=== PATIENT | female | born 1945 | race Caucasian/White ===

== ENCOUNTER 2020-06-23 15:53 | Emergency (ER) | payer MEDICARE, OTHER, SELFPAY ==
[2020-06-23] VITALS (20 sets, daily range): BP systolic 131–214; BP diastolic 65–101; PULSE 75–113; RESP 12–30; TEMP 36.8; O2SAT 98–100
--- NOTE | ~2020-06-23 | CT_ITS ---
EXAMINATION: CT brain wo con EXAM DATE: 06/23/2020 16:05 INDICATION: Left hemiparesis. TECHNIQUE: Spiral CT of the head was performed without contrast. Axial, coronal and sagittal images were reviewed. The dose-length product (DLP) for this examination was 605.33 mGy-cm. The exposure w as tailored according to patient size, and iterative reconstruction (ASIR) was used as additional dos e reduction technique. Comparison is made to prior examination from 02/28/2015 years. FINDINGS: There is a hyperdense mass in the right parietal lobe measuring 2.3 x 2.0 cm, with mild vas ogenic edema in the subjacent white matter. Is potentially could be an extra-axial mass lesion such a s meningioma, however this was not present on a CT scan in 2014 and other histology should be conside red, as well as a cortical based mass. Follow-up nonemergent brain MRI without and with contrast is r ecommended. Mild microangiopathy and cerebral atrophy. No acute intracranial hemorrhage, extra-axial collections or obstructive hydrocephalus. Bilateral cataract surgery. Imaged sinuses, and mastoid air cells are w ell aerated. IMPRESSION: 1. No acute intracranial findings. 2. Right parietal hyperdense 2 cm mass, dural versus cortical based, with mild adjacent white matter vasogenic edema. New compared to 2014. MRI without and with contrast recommended. As per stroke protocol, I called these results, discussed with charge nurse Galilea at 06/23/2020 16:12 CDT. Requested for one of the emergency room doctors to call back when available. Reviewed, dictated and finalized at location A. IMPRESSION: 1. No acute intracranial findings. 2. Right parietal hyperdense 2 cm mass, dural versus cortical based, with mild adjacent white matter vasogenic edema. New compared to 2014. MRI without and with contrast recommended. As per stroke protocol, I called these results, discussed with charge nurse Mike meadows at 06/23/2020 16:12 CDT. Requested for one of the emergency room doctors to call back when available.
--- NOTE | ~2020-06-23 | XR_ITS ---
EXAMINATION: XR chest 1V portable DATE: 06/23/2020 16:42 INDICATION: Seizure. Left-sided weakness. TECHNIQUE: frontal view of the chest was obtained. COMPARISON: Chest radiograph dated 12/26/2018 FINDINGS: The lungs remain clear with no focal airspace opacities, pulmonary edema, pleural effusion or pneumot horax. The cardiomediastinal silhouette is normal. Atherosclerotic calcifications at the bilateral ca rotid bulbs. Moderate cervical and upper thoracic spondylosis. IMPRESSION: 1. No acute cardiopulmonary disease. Reviewed, dictated and finalized at location B.
--- NOTE | 2020-06-23 15:56 | ECG_ITS ---
Measurements Intervals [place] Rate: 73 P: 74 TN: 140 QRS: 3 QRSD: 101 T: 29 QT: 361 QTc: 400 Interpretive Statements SINUS RHYTHM MINIMAL Q WAVES- HIGH LATERAL LEADS BASELINE ARTIFACT- AVR, AVL, AVF BORDERLINE ECG Electronically Signed On 06-23-2020 18:43:18 CDT by Huy Nuñez D.O.
[2020-06-23 16:14] LABS: Glucose Point of Care 98 (65-105)
[2020-06-23 16:21] LABS: Basophils Absolute Auto 0.1 K/mm3 (0.0-0.1); Eosinophils Absolute Auto 0.2 K/mm3 (0-0.3); Eosinophils Percent Auto 2.7 % (0-4.4); Hematocrit 42.7 % (37.0-47.0); Hemoglobin 14.5 g/dL (12.0-15.0); Immature Granulocyte Absolute 0.02 K/mm3 (0.00-0.031); Immature Granulocyte Percent A 0.2 % (0-0.5); Lymphocytes Absolute Auto 2.97 K/mm3 (0.9-3.2); Lymphocytes Percent Auto 36.5 % (18.3-44.2); Mean Corpuscular Hemoglobin 30.3 pg (26-34); Mean Corpuscular Volume 89.3 fl (80-100); Monocytes Absolute Auto 0.6 K/mm3 (0.1-0.6); Monocytes Percent Auto 7.1 % (2.6-8.5); Neutrophils Absolute Auto 4.3 K/mm3 (1.3-6.7); Neutrophils Percent Auto 52.5 % (45.5-73.1); Platelet Count Result 262 k/mm3 (150-375); Red Blood Count 4.78 M/mm3 (4.2-5.4); Red Cell Distribution Width 12.8 % (11.5-14.5); White Blood Count 8.1 K/mm3 (4.5-10.0)
[2020-06-23] MEDS: diazePAM INJ (*CRX) 10 MG/2 ML SYRINGE (16:25)
--- NOTE | 2020-06-23 16:25 | PC.NURSE ---
1625 patient began to have seizure. EDP notified. Per EDP at bedside give 5mg valium via IVP via verbal order readback. Waste documented in pyxsis. Medication thrown away before scanning. Given in emergent situation. NRB placed on patient at 15lpm. Pt. O2 saturations at 100%. Pt. airway suctions from saliva. Seizure pads placed. 162 Seizure activity ceased. Pt. is postictal.
[2020-06-23 16:30] LABS: INR 0.9
[2020-06-23 16:31] LABS: Anion Gap 9 mmol/L (8-16); Blood Urea Nitrogen 23 mg/dL (7-17); Calcium 9.8 mg/dL (8.4-10.2); Carbon Dioxide 28 mmol/L (22-30); Chloride 101 mmol/L (98-107); Estimated Glomerular Filt Rate 55; Glucose 102 mg/dL (65-105); Partial Thromboplastin Time 27.7 SECONDS (22.3-36.8); Sodium 138 mmol/L (137-145)
[2020-06-23] MEDS: levETIRAcetam 1000MG/NACL100ML 1,000 MG/100 ML BAG 400 MG (16:35)
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
[2020-06-23 16:43] LABS: Troponin I < 0.012 ng/mL (0.000-0.034)
[2020-06-23] MEDS: DEXAMETHASONE SOD PHOS INJ 4 MG/ML VIAL 12 MG (17:07)
--- NOTE | 2020-06-23 17:34 | PC.NURSE ---
Herbierto, Pt. spouse
== END 2020-06-23 18:30 | disposition short-term general hospital (02) ==
PROVIDERS: Emergency Provider Emergency Medicine; PCP Family Medicine Adolescent Medicine
DX: I63.9 Cerebral infarction, unspecified (principal); G93.9 Disorder of brain, unspecified; R56.9 Unspecified convulsions; I10 Essential (primary) hypertension; K21.9 Gastro-esophageal reflux disease without esophagitis; Z85.038 Personal history of other malignant neoplasm of large intestine; Z85.528 Personal history of other malignant neoplasm of kidney; Z98.42 Cataract extraction status, left eye; Z98.41 Cataract extraction status, right eye; Z87.891 Personal history of nicotine dependence; R29.703 NIHSS score 3
CPT/HCPCS: 36415; 70450; 71045; 80048; 82948; 84484; 85025; 85610; 85730; 93005; 96374; 96375; 99285; J1100; J1953; J3360

== ENCOUNTER 2020-07-07 11:55 | Outpatient (CLI) | payer MEDICARE, OTHER, SELFPAY ==
[2020-07-07 12:14] LABS: Basophils Absolute Auto 0.1 K/mm3 (0.0-0.1); Basophils Percent Auto 0.9 % (0.2-1.2); Eosinophils Absolute Auto 0.2 K/mm3 (0-0.3); Eosinophils Percent Auto 2.4 % (0-4.4); Hematocrit 34.8 % (37.0-47.0); Hemoglobin 11.5 g/dL (12.0-15.0); Immature Granulocyte Absolute 0.03 K/mm3 (0.00-0.031); Immature Granulocyte Percent A 0.4 % (0-0.5); Lymphocytes Absolute Auto 2.71 K/mm3 (0.9-3.2); Lymphocytes Percent Auto 34.9 % (18.3-44.2); Mean Corpuscular Volume 90.9 fl (80-100); Mean Platelet Volume 9.4 fl (7.4-10.4); Monocytes Absolute Auto 0.5 K/mm3 (0.1-0.6); Monocytes Percent Auto 6.3 % (2.6-8.5); Neutrophils Absolute Auto 4.3 K/mm3 (1.3-6.7); Neutrophils Percent Auto 55.1 % (45.5-73.1); Platelet Count Result 384 k/mm3 (150-375); Red Blood Count 3.83 M/mm3 (4.2-5.4); Red Cell Distribution Width 12.9 % (11.5-14.5); White Blood Count 7.8 K/mm3 (4.5-10.0)
[2020-07-07 12:19] LABS: Atypical Lymphocytes Present; Platelet Estimate Adequate (Adequate)
[2020-07-07 13:11] LABS: Alanine Aminotransferase 12 U/L (4-35); Albumin Level 4.2 g/dL (3.5-5.1); Alkaline Phosphatase 97 U/L (38-126); Anion Gap 8 mmol/L (8-16); Aspartate Amino Transferase 20 U/L (14-36); Bilirubin,Total 0.3 mg/dL (0.2-1.3); Blood Urea Nitrogen 17 mg/dL (7-17); Calcium 9.5 mg/dL (8.4-10.2); Carbon Dioxide 29 mmol/L (22-30); Chloride 101 mmol/L (98-107); Estimated Glomerular Filt Rate 55; Glucose 91 mg/dL (65-105); Potassium 4.3 mmol/L (3.4-5.0); Sodium 138 mmol/L (137-145)
[2020-07-07 13:38] LABS: Carcinoembryonic Antigen 2.9 ng/mL (0.0-3.0)
== END 2020-07-07 11:56 | disposition home or self-care (01) ==
PROVIDERS: PCP Family Medicine Adolescent Medicine; Visit Provider Internal Medicine Hematology & Oncology
DX: C18.2 Malignant neoplasm of ascending colon (principal)
CPT/HCPCS: 36415; 80053; 82378; 85025

== ENCOUNTER 2020-07-22 08:51 | Outpatient (CLI) | payer MEDICARE, OTHER, SELFPAY ==
--- NOTE | ~2020-07-22 | PE_ITS ---
EXAMINATION: PET skull to mid thigh DATE: 07/22/2020 12:01 INDICATION: Renal cell carcinoma TECHNIQUE: Blood glucose level was 101 mg/dL. 7.401 mCi of 18-fluorodeoxyglucose (18-FDG) was adminis tered i.v. Low dose computed tomography (CT) images were acquired from the base of the brain to the p roximal thighs for attenuation correction and anatomic localization. Positron emission tomography (PE T) images were acquired in the same distribution beginning 59 minutes after injection. Images includi ng fused PET/CT images were reconstructed in axial, coronal, and sagittal planes. Automated exposure control technique was employed. The dose-length product was 549.26mGy-cm. COMPARISON: CT abdomen and pelvis dated 07/24/[address] dated 06/23/2020 FINDINGS: Head/neck: There is a photopenic defect in the medial right parietal lobe underlying a craniotomy defect likely representing interval resection of a prior enhancing brain lesion, metastatic renal cell carcinoma pe r patient report. There is symmetric increased activity in the oral cavity, palatine tonsils, parotid glands, submandibular glands, laryngeal muscles and ocular muscles without CT correlate, likely phy siologic. No pathologically enlarged cervical lymphadenopathy or suspicious foci of increased FDG upt vikki in the visualized head or neck. Chest: Mild to moderate emphysema. Minimal biapical pleural-parenchymal scarring. Bilateral Bochdalek hernia s at the lung bases. No suspicious pulmonary nodules, pneumonia or other pulmonary infiltrates or ple ural effusion. Heart size is normal. Atherosclerotic coronary artery calcification. No pericardial ef fusion. Relatively symmetric mild subareolar uptake at the bilateral breasts. Small sliding-type hiat al hernia. No pathologically enlarged or FDG avid thoracic lymphadenopathy. Abdomen/pelvis/proximal thighs: Attenuation material along a defect at the inferior pole of the right kidney consistent with prior pa rtial right nephrectomy. Physiologic renal accumulation and excretion of FDG activity in the kidneys, bladder and along portions of ureters. Normal degree and heterogenous pattern of increased uptake th roughout the liver without radiologic correlate or dominant FDG avid lesion. The gallbladder, pancrea s, spleen and bilateral adrenal glands are normal. Postoperative change of prior right hemicolectomy with ileocolic anastomosis in the right upper quadrant. Mild uptake scattered throughout the bowels w ithout radiologic correlate, also likely physiologic. Uterus and bilateral adnexa are unremarkable. T here is calcified atherosclerosis of the aorta and many of the other arteries. No other abnormal foc i of increased FDG uptake or pathologically enlarged lymphadenopathy in the abdomen, pelvis or proxim al thighs. Musculoskeletal: Mild lumbar levoscoliosis with moderate spondylosis. No suspicious lytic, blastic or FDG avid bone le sions. IMPRESSION: 1. No evident metastatic disease. 2. Postoperative change of prior right parietal craniectomy and parietal lobe excisional biopsy, part ial right nephrectomy and right hemicolectomy. 3. Mild to moderate emphysema. Reviewed, dictated and finalized at location A. AL PROJECT MANAGER IMPRESSION: 1. No evident metastatic disease. 2. Postoperative change of prior right parietal craniectomy and parietal lobe e xcisional biopsy, partial right nephrectomy and right hemicolectomy. 3. Mild to moderate emphysema.
[2020-07-22 09:48] LABS: Glucose Point of Care 101 (65-105)
== END 2020-07-22 08:52 | disposition home or self-care (01) ==
LOC: ANHIMG 08:53
PROVIDERS: PCP Family Medicine Adolescent Medicine; Visit Provider Internal Medicine Hematology & Oncology
DX: Z03.89 Encounter for observation for other suspected diseases and conditions ruled out (principal); C64.1 Malignant neoplasm of right kidney, except renal pelvis; J43.9 Emphysema, unspecified; Z90.5 Acquired absence of kidney
CPT/HCPCS: 78815; A9552

== ENCOUNTER 2020-07-26 11:17 | Outpatient (CLI) | payer MEDICARE, OTHER, SELFPAY ==
[2020-07-26 11:31] LABS: Basophils Absolute Auto 0.1 K/mm3 (0.0-0.1); Basophils Percent Auto 1.1 % (0.2-1.2); Eosinophils Absolute Auto 0.3 K/mm3 (0-0.3); Eosinophils Percent Auto 5.2 % (0-4.4); Hematocrit 38.4 % (37.0-47.0); Hemoglobin 12.9 g/dL (12.0-15.0); Immature Granulocyte Absolute 0.02 K/mm3 (0.00-0.031); Immature Granulocyte Percent A 0.3 % (0-0.5); Lymphocytes Absolute Auto 1.97 K/mm3 (0.9-3.2); Lymphocytes Percent Auto 31.9 % (18.3-44.2); Mean Corpuscular HGB Conc 33.6 g/dl (32-36); Mean Corpuscular Hemoglobin 30.4 pg (26-34); Mean Corpuscular Volume 90.4 fl (80-100); Mean Platelet Volume 9.9 fl (7.4-10.4); Monocytes Absolute Auto 0.6 K/mm3 (0.1-0.6); Monocytes Percent Auto 9.9 % (2.6-8.5); Neutrophils Absolute Auto 3.2 K/mm3 (1.3-6.7); Neutrophils Percent Auto 51.6 % (45.5-73.1); Platelet Count Result 232 k/mm3 (150-375); Red Blood Count 4.25 M/mm3 (4.2-5.4); White Blood Count 6.2 K/mm3 (4.5-10.0)
[2020-07-26 12:08] LABS: Alanine Aminotransferase 11 U/L (4-35); Albumin Level 4.5 g/dL (3.5-5.1); Alkaline Phosphatase 102 U/L (38-126); Anion Gap 9 mmol/L (8-16); Aspartate Amino Transferase 20 U/L (14-36); Bilirubin,Total 0.4 mg/dL (0.2-1.3); Blood Urea Nitrogen 17 mg/dL (7-17); Calcium 9.9 mg/dL (8.4-10.2); Carbon Dioxide 29 mmol/L (22-30); Chloride 102 mmol/L (98-107); Estimated Glomerular Filt Rate 55; Glucose 108 mg/dL (65-105); Potassium 4.7 mmol/L (3.4-5.0); Sodium 140 mmol/L (137-145)
[2020-07-26 12:37] LABS: Carcinoembryonic Antigen 2.6 ng/mL (0.0-3.0)
== END 2020-07-26 11:18 | disposition home or self-care (01) ==
LOC: ANHLAB 11:19
PROVIDERS: PCP Family Medicine Adolescent Medicine; Visit Provider Internal Medicine Hematology & Oncology
DX: C18.2 Malignant neoplasm of ascending colon (principal)
CPT/HCPCS: 36415; 80053; 82378; 85025

== ENCOUNTER → 2020-10-20 08:44 | Outpatient (CLI) | payer MEDICARE, OTHER, SELFPAY ==
--- NOTE | ~2020-10-20 | CT_ITS ---
EXAMINATION: CT chest abdomen pelvis w con DATE: 10/20/2020 09:27 INDICATION: Metastatic renal cell carcinoma TECHNIQUE: Transaxial computed tomographic images of the chest, abdomen, and pelvis were obtained aft er the administration of 100 cc of Omnipaque 350 intravenous contrast. The dose-length product (DLP) was 1082.32 mGy-cm. Automated exposure control and iterative reconstruction technique were employed. COMPARISON: 07/22/2020, 07/24/2019 FINDINGS: CHEST CT: There is mild dependent atelectasis. No suspicious pulmonary nodule is identified. There is mild emph ysema. No pleural effusion or pneumothorax is present. No pathologically enlarged thoracic lymph node s are identified. The heart size is normal. There is aberrant origin of the right subclavian artery w hich passes behind the esophagus. Small bilateral fat-containing posterior diaphragmatic hernias are noted. ABDOMEN/PELVIS CT: There are stable cysts of the liver measuring up to 7 mm in the right hepatic lobe. The spleen, pancr eas, gallbladder, and adrenal glands are normal. The left kidney is unremarkable. There are changes o f partial right nephrectomy without evidence of residual or recurrent mass. There are changes of lymp h node dissection in the right retroperitoneum. No pathologically enlarged abdominal or pelvic lymph nodes are identified. There is no free intraperitoneal gas or evidence of bowel obstruction. There is calcified atherosclerosis of the aorta and many of the other arteries. There are surgical changes of right hemicolectomy. There is mild lumbar spondylosis. IMPRESSION: 1. Surgical changes of partial right nephrectomy without evidence of residual or recurrent disease. N o metastatic disease identified. 2. Mild emphysema. Reviewed, dictated and finalized at location A. CTOR OF ANNUAL GIVING IMPRESSION: 1. Surgical changes of partial right nephrectomy without evidence of residual o r recurrent disease. No metastatic disease identified. 2. Mild emphysema.
[2020-10-20 09:08] LABS: Estimated Glomerular Filt Rate 49
== END ==
PROVIDERS: PCP Nurse Practitioner Family; Visit Provider Internal Medicine Hematology & Oncology
DX: C64.1 Malignant neoplasm of right kidney, except renal pelvis (principal); Z98.890 Other specified postprocedural states; J43.9 Emphysema, unspecified
CPT/HCPCS: 71260; 74177; Q9967

== ENCOUNTER 2020-10-28 09:49 | Outpatient (CLI) | payer MEDICARE, OTHER, SELFPAY ==
[2020-10-28 10:05] LABS: Basophils Absolute Auto 0.1 K/mm3 (0.0-0.1); Eosinophils Absolute Auto 0.2 K/mm3 (0-0.3); Eosinophils Percent Auto 2.9 % (0-4.4); Hematocrit 41.7 % (37.0-47.0); Hemoglobin 13.6 g/dL (12.0-15.0); Immature Granulocyte Absolute 0.01 K/mm3 (0.00-0.031); Immature Granulocyte Percent A 0.1 % (0-0.5); Lymphocytes Absolute Auto 2.26 K/mm3 (0.9-3.2); Lymphocytes Percent Auto 31.4 % (18.3-44.2); Mean Corpuscular HGB Conc 32.6 g/dl (32-36); Mean Corpuscular Hemoglobin 29.6 pg (26-34); Mean Corpuscular Volume 90.8 fl (80-100); Mean Platelet Volume 9.7 fl (7.4-10.4); Monocytes Absolute Auto 0.7 K/mm3 (0.1-0.6); Neutrophils Percent Auto 55.6 % (45.5-73.1); Platelet Count Result 273 k/mm3 (150-375); Red Blood Count 4.59 M/mm3 (4.2-5.4); Red Cell Distribution Width 12.5 % (11.5-14.5); White Blood Count 7.2 K/mm3 (4.5-10.0)
[2020-10-28 10:11] LABS: Blood Urea Nitrogen 24 mg/dL (8-26); Carbon Dioxide 27 mmol/L (22-30); Chloride 105 mmol/L (98-109); Estimated Glomerular Filt Rate 49; Glucose 89 mg/dL (70-105); Potassium 5.5 mmol/L (3.5-4.9); Sodium 139 mmol/L (138-146)
[2020-10-28 13:14] LABS: Alanine Aminotransferase 12 U/L (4-35); Albumin Level 4.4 g/dL (3.5-5.1); Alkaline Phosphatase 106 U/L (38-126); Anion Gap 9 mmol/L (8-16); Aspartate Amino Transferase 22 U/L (14-36); Bilirubin,Total 0.5 mg/dL (0.2-1.3); Blood Urea Nitrogen 24 mg/dL (7-17); Calcium 9.8 mg/dL (8.4-10.2); Carbon Dioxide 28 mmol/L (22-30); Chloride 103 mmol/L (98-107); Estimated Glomerular Filt Rate > 60; Glucose 93 mg/dL (65-105); Potassium 4.8 mmol/L (3.4-5.0); Sodium 140 mmol/L (137-145)
[2020-10-28 13:45] LABS: Carcinoembryonic Antigen 2.6 ng/mL (0.0-3.0)
== END 2020-10-28 09:50 | disposition home or self-care (01) ==
LOC: ANHLAB 09:51
PROVIDERS: PCP Nurse Practitioner Family; Visit Provider Internal Medicine Hematology & Oncology
DX: C18.2 Malignant neoplasm of ascending colon (principal)
CPT/HCPCS: 36415; 80048; 80053; 82378; 85025

== ENCOUNTER → 2021-04-18 10:28 | Outpatient (CLI) | payer MEDICARE, OTHER, SELFPAY ==
--- NOTE | ~2021-04-18 | CT_ITS ---
EXAMINATION: CT chest abdomen pelvis wo con DATE: 04/18/2021 10:48 INDICATION: Renal cell carcinoma and colon cancer restaging; status post right partial nephrectomy TECHNIQUE: Computed tomography (CT) of the chest, abdomen, and pelvis was performed without intraveno us contrast. Automated exposure control and iterative reconstruction technique were employed. Exam do se: 1009.07 mGy-cm total exam DLP. COMPARISON: October 20, 2020 CT chest abdomen pelvis FINDINGS: CHEST CT: Bilateral fat-containing foramen of Bochdalek hernias. Mild emphysematous changes are noted. No pulmonary infiltrate or consolidation or pulmonary mass lesi on is noted. Aberrant right subclavian artery. Normal heart size. No pericardial or pleural effusion. There is a small sliding hiatal hernia. No hilar or mediastinal mass lesion or lymphadenopathy. No thoracic aortic aneurysm. ABDOMEN/PELVIS CT: No hepatic, splenic, pancreatic, adrenal or renal space-occupying mass lesion is detected. There is p ostoperative change from partial nephrectomy lower pole of the right kidney. No bile duct dilatation or pancreatic duct dilatation. The gallbladder is present. No gallbladder wal l thickening or pericholecystic fluid or fat stranding. No urinary tract calculus or hydroureteronephrosis. Normal caliber of the abdominal aorta. There is atherosclerotic calcification of the aorta and at the origins of the celiac and superior mesenteric and renal arteries. No abdominal aortic aneurysm. Ther e are iliac and femoral artery calcifications. No intraperitoneal or retroperitoneal or pelvic mass lesion or adenopathy or ascites. There is diverticulosis of left colon; no CT evidence of diverticulitis. Partial right colectomy for history of colon cancer. No bowel obstruction, bowel wall thickening, pneumatosis or intraperitoneal free air is detected. The uterus and adnexal areas are unremarkable. Urinary bladder appears normal. No suspicious osteolytic or osteoblastic lesions are noted. There is degenerative change at the apophyseal joints with associated minimal grade 1 anterolisthesis at L4-5. IMPRESSION: Status post right partial nephrectomy for renal cell cancer; no recurrence or metastasis is noted Status post right partial colectomy for colon cancer; no bowel obstruction or metastasis is evident Reviewed, dictated and finalized at Location A. Reviewed, dictated and finalized at location A. IMPRESSION: Status post right partial nephrectomy for renal cell cancer; no re currence or metastasis is noted Status post right partial colectomy for colon cancer; no bowel obstruction or m etastasis is evident
== END ==
PROVIDERS: PCP Nurse Practitioner Family; Visit Provider Internal Medicine Hematology & Oncology
DX: C64.1 Malignant neoplasm of right kidney, except renal pelvis (principal); Z90.5 Acquired absence of kidney; Z90.49 Acquired absence of other specified parts of digestive tract
CPT/HCPCS: 71250; 74176

== ENCOUNTER 2021-07-28 14:36 | Emergency (ER) | payer MEDICARE, OTHER, SELFPAY ==
--- NOTE | ~2021-07-28 | CT_ITS ---
EXAMINATION: CT brain wo con DATE: 07/28/2021 18:00 INDICATION: Posterior head injury TECHNIQUE: Computed tomography (CT) of the head was performed without intravenous contrast. Sagittal and coronal reconstructions were performed. The mA was adjusted according to patient size. Iterative reconstruction technique was employed. The dose-length product was 605.33 mGy-cm. COMPARISON: head CT dated 06/23/2020 FINDINGS: Right parietal craniotomy with plate and screw fixations. Interval resection of a prior hyperdense ex tra-axial mass along the right side of the parietal falx reportedly metastatic renal cell carcinoma p er prior patient report but would correlate with surgical/pathologic history. Small region of residua l encephalomalacia in the right parietal lobe adjacent to the site of the resected mass. No acute fra cture. No acute intracranial hemorrhage, acute infarction or abnormal extra axial fluid collection. V entricles are normal and symmetric. No mass/mass effect. Changes of bilateral intraocular lens replac ement. The orbits, paranasal sinuses and mastoid air cells are normal. IMPRESSION: 1. No acute intracranial process. 2. Small region of encephalomalacia in the right parietal lobe at the site of a resected prior mass r eportedly metastatic renal cell carcinoma. Reviewed, dictated and finalized at location A. PAINTER IMPRESSION: 1. No acute intracranial process. 2. Small region of encephalomalacia in the right parietal lobe at the site of a resected prior mass reportedly metastatic renal cell carcinoma.
--- NOTE | ~2021-07-28 | CT_ITS ---
EXAMINATION: CT cervical spine wo con DATE: 07/28/2021 18:00 INDICATION: Posterior head injury. TECHNIQUE: Computed tomography (CT) of the cervical spine was performed without intravenous contrast. Automated exposure control and iterative reconstruction technique were employed. The dose-length pro duct was 306.51 mGy-cm. COMPARISON: None FINDINGS: Straightening of the normal cervical lordosis. 2 mm anterolisthesis C3 on C4 and 2 mm anterolisthesis C7 on T1. Severe atlantoaxial osteoarthritis. Vertebral body heights are normal. No fracture. Modera te to severe disc height loss at C4-C5 and C6-C7, moderate disc height loss at C5-C6 and mild disc he ight loss at C2-C3, C3-C4 and C7-T1. Moderate to severe uncovertebral osteoarthritis and posterior di sc osteophyte complexes at C4-C5 through C6-C7 contributing to mild central canal and bilateral neura l foramina stenosis at each of these levels. Multilevel bilateral cervical facet osteoarthritis, walter re on the left at C6-C7 and C7-T1 and on the right at C3-C4 and C7-T1. There is fusion across the duncan ateral C2-C3 facet joints. Atherosclerotic calcifications at the bilateral carotid bulbs which appear s potentially hemodynamically significant. Cervical soft tissues are otherwise unremarkable. Mild emp hysema the apices of the lungs. IMPRESSION: 1. Moderate to severe cervical spondylosis. No acute osseous abnormality. Reviewed, dictated and finalized at location A. OGLYCERIN SEPARATOR OPERATOR
[2021-07-28 14:40] VITALS: BP 179/95; PULSE 78; RESP 16; TEMP 36.7; O2SAT 99
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
[2021-07-28 19:14] VITALS: BP 146/90; PULSE 66; RESP 18; O2SAT 100
== END 2021-07-28 19:19 | disposition home or self-care (01) ==
PROVIDERS: Emergency Provider Emergency Medicine; PCP Nurse Practitioner Family
DX: S09.90XA Unspecified injury of head, initial encounter (principal); S16.1XXA Strain of muscle, fascia and tendon at neck level, initial encounter; I10 Essential (primary) hypertension; K21.9 Gastro-esophageal reflux disease without esophagitis; Z85.038 Personal history of other malignant neoplasm of large intestine; Z85.528 Personal history of other malignant neoplasm of kidney; Z98.42 Cataract extraction status, left eye; Z98.41 Cataract extraction status, right eye; Z90.5 Acquired absence of kidney; Z90.49 Acquired absence of other specified parts of digestive tract; Z87.891 Personal history of nicotine dependence; W22.8XXA Striking against or struck by other objects, initial encounter
CPT/HCPCS: 70450; 72125; 99284

== ENCOUNTER 2021-08-02 10:19 | Outpatient (CLI) | payer MEDICARE, OTHER, SELFPAY ==
--- NOTE | ~2021-08-02 | CT_ITS ---
EXAMINATION: CT chest abdomen pelvis w con EXAM DATE: 08/02/2021 10:55 INDICATION: Malignant neoplasm of right kidney, except renal pelvis. Colon cancer. Brain metastases. TECHNIQUE: Spiral CT of the chest, abdomen and pelvis was performed following intravenous injection o f 100 mL Omnipaque 350. Axial, coronal and sagittal images chest, abdomen and pelvis were reviewed. Coronal maximum intensity pixel images of chest reviewed. The dose-length product (DLP) for this ex amination was 1128.56 mGy-cm. The exposure was tailored according to patient size (auto mA exposure control), and iterative reconstruction (ASIR) was used as additional dose reduction technique. Compar bowen is made to prior examination from 04/18/2021. FINDINGS: CHEST: There is mild emphysema and hyperinflation. Right basilar subsegmental atelectasis. There is an aberrant right subclavian artery, a normal congenital variant. No central pulmonary emboli. There are no pleural or pericardial effusions. Tracheobronchial tree is patent. There is no mediastina l, hilar or axillary lymphadenopathy. There is no pneumothorax. Heart normal in size. There is moderate coronary arterial calcification, arterial sclerosis. ABDOMEN PELVIS: The liver, spleen, adrenal glands and pancreas are unremarkable. Gallbladder is unr emarkable. No biliary obstruction. Surgical changes from partial nephrectomy right kidney lower josh e, stable appearance. No adjacent lymphadenopathy. The uterus is unremarkable. The bladder is unre markable. There is no retroperitoneal or pelvic lymphadenopathy. There is moderate scattered arter iosclerotic disease. Cecal resection. There is mild scattered colonic diverticulosis. There is no adjacent inflammatory c hange to suggest diverticulitis. The stomach and small bowel are unremarkable. There is expected shirin unt of colonic stool. No free intraperitoneal gas. There are no osteoblastic or osteolytic lesion s identified. There is moderate lumbar levoscoliosis. IMPRESSION: 1. Stable surgical changes to cecal resection, partial right nephrectomy. 2. Right lower lobe subsegmental atelectasis. 3. Mild emphysema. 4. Mild colonic diverticulosis. Reviewed, dictated and finalized at location A. [facility] [employer]
[2021-08-02 10:39] LABS: Estimated Glomerular Filt Rate 54
== END 2021-08-02 10:20 ==
LOC: MICIMG 10:20
PROVIDERS: PCP Nurse Practitioner Family; Visit Provider Internal Medicine Hematology & Oncology
DX: C64.1 Malignant neoplasm of right kidney, except renal pelvis (principal); K57.30 Diverticulosis of large intestine without perforation or abscess without bleeding; J98.11 Atelectasis; J43.9 Emphysema, unspecified
CPT/HCPCS: 71260; 74177; Q9967

== ENCOUNTER → 2022-11-29 08:50 | Outpatient (CLI) | payer MEDICARE, OTHER, SELFPAY ==
--- NOTE | ~2022-11-29 | MR_ITS ---
MRI of the right knee Clinical history: Pain Technique: Coronal proton density and proton density-weighted images, sagittal proton-density and T2 fat-sat images, and axial proton-density fat-saturated images were acquired. Findings: Anterior and posterior cruciate ligaments are intact. Medial collateral ligament and the la teral collateral ligament complex are intact. Popliteus tendon is intact. There is intrasubstance degenerative signal in the medial and lateral menisci, without definite tear. There is high-grade chondromalacia extensively involving the medial femoral condyle and anterior port ion of the medial tibial plateau. Articular cartilage in the lateral compartment is well preserved. T here is patchy moderate to high-grade chondromalacia patella. Femoral trochlear cartilage is well pre served. Small osteophytes are present at the medial and lateral joint lines. Extensor mechanism is intact. There is minimal joint effusion. No significant Erickson's cyst. Impression: Intrasubstance degenerative signal of the medial and lateral menisci without definite tear. Moderate degenerative change of the medial compartment. Mild degenerative changes of the lateral and patellofemoral compartments. Reviewed, dictated and finalized at location . Impression: Intrasubstance degenerative signal of the medial and lateral menisci without de finite tear. Moderate degenerative change of the medial compartment. Mild degenerative hernandez es of the lateral and patellofemoral compartments.
== END ==
PROVIDERS: PCP Nurse Practitioner Family; Visit Provider Physician Assistant Surgical
DX: S89.91XA Unspecified injury of right lower leg, initial encounter (principal); X58.XXXA Exposure to other specified factors, initial encounter; M17.11 Unilateral primary osteoarthritis, right knee
CPT/HCPCS: 73721

== ENCOUNTER 2023-08-27 10:09 | Outpatient (CLI) | payer MEDICARE, OTHER, SELFPAY ==
[2023-08-27 10:31] LABS: Eosinophils Absolute Auto 0.2 K/mm3 (0-0.3); Eosinophils Percent Auto 3.9 % (0-4.4); Hematocrit 41.9 % (37.0-47.0); Lymphocytes Absolute Auto 1.86 K/mm3 (0.9-3.2); Lymphocytes Percent Auto 45.6 % (18.3-44.2); Mean Corpuscular HGB Conc 33.4 g/dl (32-36); Mean Corpuscular Hemoglobin 30.3 pg (26-34); Mean Corpuscular Volume 90.7 fl (80-100); Mean Platelet Volume 9.5 fl (7.4-10.4); Monocytes Absolute Auto 0.4 K/mm3 (0.1-0.6); Monocytes Percent Auto 9.1 % (2.6-8.5); Neutrophils Absolute Auto 1.7 K/mm3 (1.3-6.7); Neutrophils Percent Auto 40.4 % (45.5-73.1); Platelet Count Result 256 k/mm3 (150-375); Red Blood Count 4.62 M/mm3 (4.2-5.4); Red Cell Distribution Width 12.5 % (11.5-14.5); White Blood Count 4.1 K/mm3 (4.5-10.0)
[2023-08-27 10:37] LABS: Blood Urea Nitrogen 20 mg/dL (8-26); Carbon Dioxide 27 mmol/L (22-30); Chloride 100 mmol/L (98-109); Estimated Glomerular Filt Rate 54; Glucose 102 mg/dL (70-105); Ionized Calcium (POC) 1.16 mmol/L (1.11-1.31); Potassium 4.3 mmol/L (3.5-4.9); Sodium 139 mmol/L (138-146)
[2023-08-27 11:55] LABS: Alanine Aminotransferase 14 U/L (6-35); Albumin Level 4.5 g/dL (3.5-5.1); Alkaline Phosphatase 105 U/L (38-126); Anion Gap 10 mmol/L (8-16); Aspartate Amino Transferase 24 U/L (14-36); Bilirubin,Total 0.6 mg/dL (0.2-1.3); Blood Urea Nitrogen 20 mg/dL (7-17); Calcium 9.7 mg/dL (8.4-10.2); Carbon Dioxide 27 mmol/L (22-30); Chloride 102 mmol/L (98-107); Estimated Glomerular Filt Rate > 60; Glucose 104 mg/dL (65-110); Potassium 4.4 mmol/L (3.4-5.0); Sodium 139 mmol/L (137-145)
[2023-08-27 12:22] LABS: Carcinoembryonic Antigen 2.7 ng/mL (0.0-3.0)
== END 2023-08-27 10:10 | disposition home or self-care (01) ==
LOC: ANHLAB 10:11
PROVIDERS: PCP Nurse Practitioner Family; Visit Provider Internal Medicine Hematology & Oncology
DX: C18.2 Malignant neoplasm of ascending colon (principal)
CPT/HCPCS: 36415; 80047; 80053; 82378; 85025

== ENCOUNTER 2023-09-05 08:57 | Outpatient (CLI) | payer MEDICARE, OTHER, SELFPAY ==
--- NOTE | ~2023-09-05 | CT_ITS ---
EXAMINATION: CT chest abdomen pelvis w con DATE: 09/05/2023 09:29 INDICATION: Malignant neoplasm of colon. Renal cell carcinoma. TECHNIQUE: Computed tomography (CT) of the chest, abdomen, and pelvis was performed with 100 mL Omnip aque 350 intravenous contrast. Automated exposure control and iterative reconstruction technique were employed. The dose-length product was 1001.08 mGy-cm. COMPARISON: CT chest, abdomen, and pelvis 08/02/2021 FINDINGS: CHEST CT: There is mild emphysema. There is mild atelectasis bilaterally. No pleural effusion. There is an aber rant right subclavian artery. The heart size is normal. There are coronary artery calcifications. No pericardial effusion. There is a small sliding hiatal hernia. There is severe thoracic spondylosis. ABDOMEN/PELVIS CT: There are cysts in the liver measuring up to 7 mm. The gallbladder, spleen, pancreas, adrenal glands, and left kidney are normal. There are changes of partial right nephrectomy. There is calcified ather osclerosis of the aorta and many of the other arteries. There is diverticulosis of the colon without evidence of diverticulitis. There are changes of right hemicolectomy. There are no pathologically enl arged lymph nodes. There is no free intraperitoneal fluid. There is lumbar levoscoliosis and severe s pondylosis. IMPRESSION: 1. No evidence of metastatic disease. 2. Mild emphysema. 3. Small sliding hiatal hernia. Reviewed, dictated and finalized at location E. ER [facility]
== END 2023-09-05 08:58 ==
LOC: MICIMG 08:58
PROVIDERS: PCP Internal Medicine Hematology & Oncology; Visit Provider Internal Medicine Hematology & Oncology
DX: C64.9 Malignant neoplasm of unspecified kidney, except renal pelvis (principal); C18.9 Malignant neoplasm of colon, unspecified; J43.9 Emphysema, unspecified; K44.9 Diaphragmatic hernia without obstruction or gangrene
CPT/HCPCS: 71260; 74177; Q9967

== ENCOUNTER 2024-01-23 18:12 | Emergency (ER) | payer MEDICARE, OTHER, SELFPAY ==
--- NOTE | ~2024-01-23 | XR_ITS ---
EXAMINATION: XR wrist RT min 3V DATE: 01/23/2024 18:39 INDICATION: Right wrist injury. TECHNIQUE: 4 views of right wrist were obtained. COMPARISON: None. FINDINGS: Alignment is normal. No fracture. There is mild osteoarthritis of triscaphe joint and first carpometacarpal joint. IMPRESSION: 1. Mild polyarticular osteoarthritis. Reviewed, dictated and finalized at location E.
[2024-01-23 18:39] VITALS: BP 168/75; PULSE 69; RESP 14; TEMP 36.8; O2SAT 100
--- NOTE | 2024-01-23 18:56 | ED.EXTPRO ---
HPI - Extremity Problem General Chief complaint: Extremity Injury, Upper Stated complaint: right arm injury Time Seen by Provider: 01/23/24 18:46 Source: patient and RN notes reviewed Mode of arrival: ambulatory Limitations: no limitations History of Present Illness HPI Narrative: Patient presents today complaining of an injury to her right wrist. Approximately 8 hours prior to arrival, patient struck her wrist on her car door. States it swelled up immediately. She has applied ice throughout the day in the swelling has improved, but she did develop some significant bruising. Reports some tingling to her fingers as well. She has tried no [id number] medication for symptoms prior to arrival. Related Data Home Medications Medication Instructions Recorded Confirmed mecobalamin (vitamin B12) 1,000 1,000 mcg PO DAILY 01/12/20 01/23/24 mcg chewable tablet vit C 250 mg-vit E 90 mg-zinc 40 1 tablet PO BID 01/12/20 01/23/24 mg-copper 1 [id number] capsule (PreserVision AREDS-2) amlodipine 5 mg tablet 5 mg PO DAILY 12/09/21 01/23/24 cyanocobalamin (vitamin B-12) 5,000 mcg PO DAILY 12/09/21 01/23/24 5,000 mcg capsule levetiracetam 500 mg tablet 500 mg PO Q12H 12/09/21 01/23/24 omeprazole 20 mg capsule,delayed 20 mg PO DAILY 12/09/21 01/23/24 release phenazopyridine 95 mg tablet (Azo 95 mg PO TID PRN Incontinence 01/02/22 01/23/24 Urinary Pain Relief) Allergies Allergy/AdvReac Type Severity Reaction Status Date / Time ciprofloxacin Allergy Unknown unknown Verified 01/23/24 18:18 clindamycin Allergy Unknown unknown Verified 01/23/24 18:18 latex Allergy Unknown sentive Verified 01/23/24 18:18 not really alergic mold Allergy Unknown trouble Verified 01/23/24 18:18 breathing nitrofurantoin Allergy Unknown shuts down Verified 01/23/24 18:18 systems pollen extracts Allergy Unknown respirator Verified 01/23/24 18:18 y Sulfa (Sulfonamide Allergy Unknown unknown Verified 01/23/24 18:18 Antibiotics) clarithromycin AdvReac Mild RASH AND Verified 01/23/24 18:18 BURNING CEFTRIAXONE SODIUM AdvReac Mild RASH Uncoded 01/23/24 18:18 Review of Systems Review of Systems: CONSTITUTIONAL: Denies body aches, fever, chills, or sweats. EYES: Denies visual changes, redness, or discharge. ENT: Denies rhinorrhea, congestion, sore throat, or otalgia. CARDIOVASCULAR: Denies chest pain, palpitations, or edema. RESPIRATORY: Denies cough or dyspnea. GASTROINTESTINAL: Denies abdominal pain, nausea, vomiting, or diarrhea. GENITOURINARY: Denies dysuria or hematuria. SKIN: Denies rash, itching, or wounds. MUSCULOSKELETAL: + right wrist injury NEUROLOGIC: Denies headache, numbness, tingling, or weakness. PSYCH: Denies depression or anxiety. [facility] Past Medical History Medical History (Updated 01/23/24 @ 19:00 by Vianney Granda, REJI, BC) Colon cancer GERD (gastroesophageal reflux disease) Heart murmur History of kidney cancer HTN (hypertension) Incisional hernia Surgical History Surgical History Cataracts, bilateral removed H/O hernia repair History of ankle surgery with tendon repair 2012 History of colon surgery had colon cancer removed 2017 History of kidney surgery bottom half kidney removed 2010 History of knee surgery 2019 Family History Family History Mother Diabetes mellitus Hypertension Cerebrovascular accident Grandparent Carcinoma of colon Father Cancer Other Family history of allergic disorder Family history of arthritis Family history of malignant neoplasm of breast Family history of malignant neoplasm of kidney Social History Social History Smoking status: Never smoker Smoking end date: 09/10/10 Alcohol intake: current Alcohol use details: occasiona
== END 2024-01-23 19:05 | disposition home or self-care (01) ==
PROVIDERS: Emergency Provider Nurse Practitioner
DX: S50.11XA Contusion of right forearm, initial encounter (principal); W22.8XXA Striking against or struck by other objects, initial encounter; F12.90 Cannabis use, unspecified, uncomplicated; K21.9 Gastro-esophageal reflux disease without esophagitis; R01.1 Cardiac murmur, unspecified; I10 Essential (primary) hypertension; Z85.038 Personal history of other malignant neoplasm of large intestine; Z85.528 Personal history of other malignant neoplasm of kidney; Z98.42 Cataract extraction status, left eye; Z98.41 Cataract extraction status, right eye; Z90.5 Acquired absence of kidney; Z87.891 Personal history of nicotine dependence
CPT/HCPCS: 73110; 99213; G0463

== ENCOUNTER 2024-06-06 14:35 | Emergency (ER) | payer MEDICARE, OTHER, SELFPAY ==
--- NOTE | ~2024-06-06 | CT_ITS ---
CTA brain carotid Ordering provider: Demarcus Lemons MD History: . left side weakness . Comparison: None. Technique: CT angiogram head and neck was performed following timed intravenous injection of contrast . Thin slice axial images and reformatted coronal images were obtained. Three dimensional reformatted images of the brain were also obtained using a [employer] workstation. Radiation reduction technique uti lized. 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 HEAD: --ANTERIOR AND MIDDLE CEREBRAL ARTERIES AND BRANCHES: Normal caliber and contour. --INTERNAL CAROTID ARTERIES: Mild atheromatous disease but no significant stenosis. No occlusion. --BASILAR ARTERY AND BRANCHES: Normal caliber and contour. No atheromatous disease. --POSTERIOR CEREBRAL ARTERIES: Normal caliber and contour --POSTERIOR COMMUNICATING ARTERIES: The right is demonstrated and continues as posterior cerebral art rodri. The left is Not visualized which is probably related to congenital absence or small size. --ANEURYSM: None visualized. --BRAIN: No evidence of hemorrhage or infarct. Encephalomalacia seen in the right parietal area most likely postoperative.--BONES AND SUPERFICIAL SOFT TISSUES: Postoperative changes in the right occipit al area. --PARANASAL SINUSES AND MASTOIDS: Normal. NECK: --RIGHT CERVICAL CAROTID SYSTEM: Mild atheromatous disease of the carotid bulb and proximal internal carotid artery without significant stenosis. Percent stenosis per NASCET criteria is 40%. No carotid dissection. Otherwise, no significant atheromatous disease or stenosis of the cervical carotid syste m. --LEFT CERVICAL CAROTID SYSTEM: Mild atheromatous disease of the carotid bulb and proximal internal c arotid artery without significant stenosis. Percent stenosis per NASCET criteria is 75% No carotid d issection. Otherwise, no significant atheromatous disease or stenosis of the cervical carotid system. --VERTEBRAL ARTERIES: Normal caliber and contour. --VISUALIZED AORTIC ARCH AND BRANCHING VESSELS: Mild atheromatous disease but no significant stenosis . Common origin of the right and left carotid artery is seen. Separate origin of the right and left s ubclavian artery is seen. . --SOFT TISSUES: Normal. --CERVICAL SPINE: Age appropriate degenerative changes. IMPRESSION: CTA neck. Percent stenosis per NASCET criteria is 75% on the left side and 40% on the right lobe No intracranial vascular occlusion or significant stenosis seen. 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 Reviewed, dictated and finalized at location A. IMPRESSION: CTA neck. Percent stenosis per NASCET criteria is 75% on the left side and 40 % on the right lobe No intracranial vascular occlusion or significant stenosis seen. 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
[2024-06-06 14:30] VITALS: BP 147/75; PULSE 73; RESP 18; TEMP 36.3; O2SAT 97
--- NOTE | 2024-06-06 15:06 | ED.SEIZURE ---
HPI - Seizure General Chief Complaint: Seizure Stated Complaint: seizure activity Time Seen by Provider: 06/06/24 14:48 Source: patient and family Mode of arrival: EMS Limitations: no limitations History of Present Illness HPI Narrative: This is a 78-year-old female, with history of brain tumor and history of seizures, brought in by EMS today for seizure prodrome. The patient and her family state she began having left sided weakness yesterday afternoon at approximately 18:00. Her symptoms Today at at approximately 13:30 she began feeling palpitations and sense of anxiety, which she has prior to seizures. She had not yet taken her a.m. dose of Keppra. Family member states they gave it to her at that time in addition to Ativan. She now complains of left-sided numbness, associated with left upper and lower extremity weakness. She denies other symptoms and has no other complaints at this time. Related Data Home Medications Medication Instructions Recorded Confirmed mecobalamin (vitamin B12) 1,000 1,000 mcg PO DAILY 01/12/20 01/23/24 mcg chewable tablet vit C 250 mg-vit E 90 mg-zinc 40 1 tablet PO BID 01/12/20 01/23/24 mg-copper 1 [id number] capsule (PreserVision AREDS-2) amlodipine 5 mg tablet 5 mg PO DAILY 12/09/21 01/23/24 cyanocobalamin (vitamin B-12) 5,000 mcg PO DAILY 12/09/21 01/23/24 5,000 mcg capsule levetiracetam 500 mg tablet 500 mg PO Q12H 12/09/21 01/23/24 omeprazole 20 mg capsule,delayed 20 mg PO DAILY 12/09/21 01/23/24 release phenazopyridine 95 mg tablet (Azo 95 mg PO TID PRN Incontinence 01/02/22 01/23/24 Urinary Pain Relief) Allergies Allergy/AdvReac Type Severity Reaction Status Date / Time ciprofloxacin Allergy Unknown unknown Verified 06/06/24 16:48 clindamycin Allergy Unknown unknown Verified 06/06/24 16:48 latex Allergy Unknown sentive Verified 06/06/24 16:48 not really alergic mold Allergy Unknown trouble Verified 06/06/24 16:48 breathing nitrofurantoin Allergy Unknown shuts down Verified 06/06/24 16:48 systems pollen extracts Allergy Unknown respirator Verified 06/06/24 16:48 y Sulfa (Sulfonamide Allergy Unknown unknown Verified 06/06/24 16:48 Antibiotics) clarithromycin AdvReac Mild RASH AND Verified 06/06/24 16:48 BURNING CEFTRIAXONE SODIUM AdvReac Mild RASH Uncoded 01/23/24 18:18 Review of Systems Review of Systems: All systems reviewed & are unremarkable except as noted in HPI and below PMFSH Past Medical History Medical History (Updated 06/06/24 @ 17:01 by Matt Siegel MD) Colon cancer GERD (gastroesophageal reflux disease) Heart murmur History of kidney cancer HTN (hypertension) Incisional hernia Surgical History Surgical History Cataracts, bilateral removed H/O hernia repair History of ankle surgery with tendon repair 2012 History of colon surgery had colon cancer removed 2017 History of kidney surgery bottom half kidney removed 2010 History of knee surgery 2019 Family History Family History Mother Diabetes mellitus Hypertension Cerebrovascular accident Grandparent Carcinoma of colon Father Cancer Other Family history of allergic disorder Family history of arthritis Family history of malignant neoplasm of breast Family history of malignant neoplasm of kidney Social History Social History Smoking status: Never smoker Smoking end date: 09/10/10 Alcohol intake: current Alcohol use details: occasional Substance use: current Substance use type: marijuana Lack of Transportation: No Lack of Food: Never True Current Housing: I Have Housing Concerned About Future Housing: No Difficulty Paying Gas/Electric Bills: No Difficulty Paying for Meds: No Currently Unemployed: No Education: Decline to Answ
[2024-06-06 15:10] LABS: Estimated CRCL calculation 37 ml/min; Estimated Glomerular Filt Rate 48
[2024-06-06 15:27] LABS: Basophils Absolute Auto 0.1 K/mm3 (0.0-0.1); Basophils Percent Auto 1.1 % (0.2-1.2); Eosinophils Absolute Auto 0.1 K/mm3 (0-0.3); Eosinophils Percent Auto 1.2 % (0-4.4); Hematocrit 41.2 % (37.0-47.0); Hemoglobin 14.2 g/dL (12.0-15.0); Immature Granulocyte Absolute 0.03 K/mm3 (0.00-0.031); Immature Granulocyte Percent A 0.5 % (0-0.5); Lymphocytes Absolute Auto 1.73 K/mm3 (0.9-3.2); Lymphocytes Percent Auto 26.9 % (18.3-44.2); Mean Corpuscular HGB Conc 34.5 g/dl (32-36); Mean Corpuscular Hemoglobin 31.3 pg (26-34); Mean Corpuscular Volume 90.9 fl (80-100); Mean Platelet Volume 10.1 fl (7.4-10.4); Monocytes Absolute Auto 0.6 K/mm3 (0.1-0.6); Monocytes Percent Auto 8.6 % (2.6-8.5); Neutrophils Percent Auto 61.7 % (45.5-73.1); Platelet Count Result 226 k/mm3 (150-375); Red Blood Count 4.53 M/mm3 (4.2-5.4); Red Cell Distribution Width 12.2 % (11.5-14.5); White Blood Count 6.4 K/mm3 (4.5-10.0)
[2024-06-06 15:36] LABS: Atypical Lymphocytes Present; Platelet Estimate Adequate (Adequate); Schistocytes None Seen
[2024-06-06 15:43] LABS: Alanine Aminotransferase 14 U/L (6-35); Albumin Level 4.8 g/dL (3.5-5.1); Alkaline Phosphatase 118 U/L (38-126); Anion Gap 12 mmol/L (4-12); Aspartate Amino Transferase 27 U/L (14-36); Bilirubin,Total 0.6 mg/dL (0.2-1.3); Blood Urea Nitrogen 25 mg/dL (7-17); Calcium 9.7 mg/dL (8.4-10.2); Carbon Dioxide 26 mmol/L (22-30); Chloride 101 mmol/L (98-107); Estimated CRCL calculation 41 ml/min; Estimated Glomerular Filt Rate 54; Glucose 93 mg/dL (65-110); Potassium 4.2 mmol/L (3.4-5.0); Sodium 139 mmol/L (137-145)
[2024-06-06 15:46] LABS: Ethanol < 10 mg/dL (<10)
[2024-06-06 15:50] LABS: Magnesium 2.1 mg/dL (1.6-2.3)
[2024-06-06 15:55] LABS: Add Urine Microscopic? NO; Appearance Urine Clear (Clear); Bilirubin Urine Negative (Negative); Blood Urine Negative (Negative); Color Urine Yellow (Yellow); Glucose Urine UA Negative (Negative); Ketones Urine Negative (Negative); Leukocyte Esterase Ur Negative LEU/UL (Negative); Nitrate Urine Negative (Negative); Protein Urine Negative (Negative); Specific Grav Ur 1.007 (1.001-1.035); Urobilinogen Urine 0.2 mg/dL (<2.0); pH Urine 6.5 (5.0-9.0)
[2024-06-06 16:10] LABS: Barbiturate Screen Urine Negative (Negative); Benzodiazepines Screen Urine Negative (Negative)
[2024-06-06 16:13] LABS: Cannabinoid Screen Urine Positive (Negative); Cocaine Screen Urine Negative (Negative); Methadone Screen Urine Negative (Negative); Opiate Screen Urine Negative (Negative); Phencyclidine Screen Urine Negative (Negative)
[2024-06-06 16:21] LABS: Amphetamine Screen Urine Negative (Negative)
[2024-06-06] MEDS: levETIRAcetam 1000MG/NACL100ML 1,000 MG/100 ML BAG 400 MG IVPB (16:26)
[2024-06-06 16:45] VITALS: BP 160/78; PULSE 73; RESP 15; TEMP 36.4; O2SAT 100
[2024-06-06] MEDS: ACETAMINOPHEN 500 MG TABLET 1000 MG PO (17:15)
[2024-06-06] MEDS: PROCHLORPERAZINE EDISYLATE 10 MG/2 ML VIAL IV PUSH (17:18)
[2024-06-06] MEDS: LORazepam INJ (*CRX) 2 MG/ML VIAL 1 MG IV PUSH (17:23)
[2024-06-06 17:38] VITALS: BP 138/77; PULSE 86; RESP 14; O2SAT 97
== END 2024-06-06 17:40 | disposition short-term general hospital (02) ==
LOC: ANHED 17:05
PROVIDERS: Emergency Provider Preventive Medicine Aerospace Medicine
DX: R53.1 Weakness (principal); R20.0 Anesthesia of skin; I10 Essential (primary) hypertension; G40.909 Epilepsy, unspecified, not intractable, without status epilepticus; K21.9 Gastro-esophageal reflux disease without esophagitis; Z85.528 Personal history of other malignant neoplasm of kidney; Z87.891 Personal history of nicotine dependence; Z98.42 Cataract extraction status, left eye; Z98.41 Cataract extraction status, right eye; Z79.899 Other long term (current) drug therapy; I65.23 Occlusion and stenosis of bilateral carotid arteries; I70.0 Atherosclerosis of aorta
CPT/HCPCS: 36415; 70496; 70498; 80053; 80307; 81003; 83735; 85025; 96374; 96375; 99285; A9270; J0780; J1953; J2060; Q9967

== ENCOUNTER 2024-07-09 14:58 | Inpatient (IN) | payer MEDICARE, OTHER, SELFPAY ==
[2024-07-09] VITALS (33 sets, daily range): BP systolic 148–211; BP diastolic 74–116; PULSE 84–132; RESP 10–44; TEMP 37; O2SAT 94–98
--- NOTE | ~2024-07-09 | XR_ITS ---
EXAMINATION: XR abdomen gastric tube insert DATE: 07/10/2024 15:40 INDICATION: Nasogastric tube placement. TECHNIQUE: A supine view of the abdomen was obtained. COMPARISON: CT 09/05/2023 FINDINGS: The lower abdomen and the right lateral aspect of the abdomen are excluded. The nasogastric tube tip is in the stomach. There is a catheter tip at superior cavoatrial junction. IMPRESSION: 1. Nasogastric tube tip in the stomach. Reviewed, dictated and finalized at location B.
--- NOTE | ~2024-07-09 | XR_ITS ---
EXAMINATION: XR chest 1V portable DATE: 07/12/2024 06:02 INDICATION: Intubated on mechanical ventilation. TECHNIQUE: frontal view of the chest was obtained. COMPARISON: Chest radiograph and CT dated 07/11/2024 FINDINGS: Endotracheal tube tip 3.0 cm above the celeste. Nasogastric tube tip in proximal side port in the body of the stomach. Right internal jugular central venous catheter with distal tip at the superior cavoa trial junction. Opacities at the bilateral lung bases consistent with likely persistent very small pleural effusions and associated atelectasis versus less likely pneumonia. The cardiomediastinal silhouette is normal. IMPRESSION: 1. Mild bibasilar opacities consistent with persistent very small pleural effusions and associated at electasis versus less likely pneumonia Reviewed, dictated and finalized at location A. IMPRESSION: 1. Mild bibasilar opacities consistent with persistent very small pleural effus ions and associated atelectasis versus less likely pneumonia
--- NOTE | ~2024-07-09 | XR_ITS ---
EXAMINATION: XR chest ET placement DATE: 07/10/2024 15:47 INDICATION: Intubation. TECHNIQUE: A single frontal view of the chest was obtained. COMPARISON: Chest single view 07/09/2024 FINDINGS: There is no pneumonia, pleural effusion, or pneumothorax. The heart size is normal. The end otracheal tube tip is 3.3 cm above the celeste. A right internal jugular central venous catheter is se en with tip at the superior cavoatrial junction. IMPRESSION: 1. No acute cardiopulmonary disease. Reviewed, dictated and finalized at location B.
--- NOTE | ~2024-07-09 | XR_ITS ---
Portable chest x-ray Comparison: 07/09/2024 Clinical History: Respiratory failure Findings: Endotracheal tube, right IJ line, and NG tube are in place. Questionable minimal right bas ilar haziness. Left lung clear. Cardiomediastinal silhouette is stable. Bones and soft tissues are u nremarkable. Impression: Support tubes, as above. Possible minimal haziness right lung base, nonspecific. Reviewed, dictated and finalized at location M. Impression: Support tubes, as above. Possible minimal haziness right lung base, nonspecific.
--- NOTE | ~2024-07-09 | XR_ITS ---
EXAMINATION: XR chest 1V portable Exam Date/Time: 07/09/2024 17:30 CDT HISTORY: mental status change Comparison: 06/23/2020. RESULT: Lines, tubes, and devices: None. Lungs and pleura: Biapical pleural scarring. Senescent change. Mild diffuse reticular opacities. Min imal streaky bibasilar scar/atelectasis. Cardiomediastinal silhouette: Stable. Other: No acute osseous or upper abdominal finding. IMPRESSION: Mild interstitial edema. Reviewed, dictated and finalized at location K. IMPRESSION: Mild interstitial edema.
--- NOTE | ~2024-07-09 | CT_ITS ---
EXAMINATION: CT chest abdomen pelvis wo con DATE: 07/11/2024 11:07 INDICATION: Fever. TECHNIQUE: Computed tomography (CT) of the chest, abdomen, and pelvis was performed without intraveno us contrast. Automated exposure control and iterative reconstruction technique were employed. The dos e-length product was 968.09 mGy-cm. COMPARISON: CT 09/05/2023 FINDINGS: CHEST CT: There is mild emphysema. There is mild dependent atelectasis bilaterally. There are groundglass opaci ties and small nodules in anterior segment right upper lobe, right middle lobe, and right lower lobe, consistent with pneumonia. There are small pleural effusions. There is an aberrant right subclavian artery. The endotracheal tube tip is in expected position. A right internal jugular central venous ca theter is seen with tip in the proximal right atrium. The nasogastric tube tip is in the stomach. The heart size is normal. There are coronary artery calcifications. No pericardial effusion. There is se ellen cervical and thoracic spondylosis. ABDOMEN/PELVIS CT: The liver and spleen are normal. The gallbladder is distended. The pancreas, adrenal glands, and left kidney are normal. There are changes of partial right nephrectomy. There is a Malloy catheter in expe cted position. There are changes of right hemicolectomy. There are no pathologically enlarged lymph n odes. There is no free intraperitoneal fluid. There is moderate lumbar spondylosis. Lumbar levoscolio sis is noted. IMPRESSION: 1. Mild right-sided pneumonia. 2. Mild emphysema. 3. Small pleural effusions. 4. Gallbladder distention, which may be secondary to fasting or less likely acute cholecystitis. Reviewed, dictated and finalized at location B. IMPRESSION: 1. Mild right-sided pneumonia. 2. Mild emphysema. 3. Small pleural effusions. 4. Gallbladder distention, which may be secondary to fasting or less likely acu te cholecystitis.
--- NOTE | ~2024-07-09 | CT_ITS ---
EXAMINATION: CT brain wo con DATE: 07/09/2024 16:39 INDICATION: Altered mental status TECHNIQUE: Computed tomography (CT) of the head was performed without intravenous contrast. Sagittal and coronal reconstructions were performed. The mA was adjusted according to patient size. Iterative reconstruction technique was employed. The dose-length product was 681.00 mGy-cm. COMPARISON: head CT dated 06/06/24 FINDINGS: Chronic right parietal craniotomy with plate and screw fixations. This overlies a small region of enc ephalomalacia in the medial right parietal lobe at the site of a prior hyperdense mass reportedly met astatic renal cell carcinoma per prior patient report. No acute intracranial hemorrhage, acute infarc tion or abnormal extra axial fluid collection. There is mild scattered white matter hypoattenuation c onsistent with chronic small vessel ischemic disease. Ventricles are normal and symmetric. No mass/ma ss effect. Changes of bilateral intraocular lens replacement. The orbits, paranasal sinuses and mast oid air cells are normal. IMPRESSION: 1. No acute intracranial process. 2. Small region of encephalomalacia in the right parietal lobe at the site of a resected prior mass r eportedly metastatic renal cell carcinoma. Reviewed, dictated and finalized at location A. IMPRESSION: 1. No acute intracranial process. 2. Small region of encephalomalacia in the right parietal lobe at the site of a resected prior mass reportedly metastatic renal cell carcinoma.
--- NOTE | 2024-07-09 15:01 | ECG_ITS ---
Test Date: 2024-07-09 15:07:02 Measurements Intervals Faison Rate: 91 P: 141 NH: 134 QRS: -5 QRSD: 106 T: 206 QT: 351 QTc: 432 Interpretive Statements ECTOPIC ATRIAL RHYTHM vs possible limb lead reversal LEFT VENTRICULAR HYPERTROPHY AND ST-T CHANGE [VOLTAGE CRITERIA PLUS ST/T ABNORMALITY] PROBABLE LATERAL MYOCARDIAL INFARCTION , OF INDETERMINATE AGE [35 ms Q WAVE IN I/aVL/V5/V6] No previous ECG available for comparison Electronically Signed On 07-10-2024 11:36:05 CDT by Ced Steele M.D.
--- NOTE | 2024-07-09 15:20 | PC.NURSE ---
seizure pads applied at this time.
--- NOTE | 2024-07-09 15:37 | PC.NURSE ---
Patient unable to follow commands. patient not moving bilateral upper and lower extremities. patient tracking RN as she walks around room.
--- NOTE | 2024-07-09 15:48 | PC.NURSE ---
Notified MD Arredondo of patient blood pressure being 210/116. to see patient.
--- NOTE | 2024-07-09 15:56 | ED_ITS ---
HPI - Altered Mental Status General Chief Complaint: Seizure Stated Complaint: altered mental status Time Seen by Provider: 07/09/24 15:44 History of Present Illness HPI narrative: Pt presents today with altered mental status. Pt has history of brai tumor and has had one resected in 2019 and now has another and is getting radiation because it is too clos e to a vessel and they want to try and shrink it. Pt has had swelling in brain due to this and has been on steroids and is getting her last dose of a wean. Pt take keppra for seizures. Pt was her baseline this morning and went to financial retirement plan specialist with and then became less responsive to family and now is not following any commands. Related Data Home Medications Medication Instructions Recorded Confirmed mecobalamin (vitamin B12) 1,000 1,000 mcg PO DAILY 01/12/20 01/23/24 mcg chewable tablet vit C 250 mg-vit E 90 mg-zinc 40 1 tablet PO BID 01/12/20 01/23/24 mg-copper 1 [id number] capsule (PreserVision AREDS-2) amlodipine 5 mg tablet 5 mg PO DAILY 12/09/21 01/23/24 cyanocobalamin (vitamin B-12) 5,000 mcg PO DAILY 12/09/21 01/23/24 5,000 mcg capsule levetiracetam 500 mg tablet 500 mg PO Q12H 12/09/21 01/23/24 omeprazole 20 mg capsule,delayed 20 mg PO DAILY 12/09/21 01/23/24 release phenazopyridine 95 mg tablet (Azo 95 mg PO TID PRN Incontinence 01/02/22 01/23/24 Urinary Pain Relief) Allergies Allergy/AdvReac Type Severity Reaction Status Date / Time ciprofloxacin Allergy Unknown unknown Verified 07/09/24 15:36 clindamycin Allergy Unknown unknown Verified 07/09/24 15:36 latex Allergy Unknown sentive Verified 07/09/24 15:36 not really alergic mold Allergy Unknown trouble Verified 07/09/24 15:36 breathing nitrofurantoin Allergy Unknown shuts down Verified 07/09/24 15:36 systems pollen extracts Allergy Unknown respirator Verified 07/09/24 15:36 y Sulfa (Sulfonamide Allergy Unknown unknown Verified 07/09/24 15:36 Antibiotics) clarithromycin AdvReac Mild RASH AND Verified 07/09/24 15:36 BURNING CEFTRIAXONE SODIUM AdvReac Mild RASH Uncoded 01/23/24 18:18 Review of Systems Review of Systems: All systems reviewed & are unremarkable except as noted in HPI and below PMFSH Past Medical History Medical History (Updated 07/09/24 @ 22:21 by Kris Arredondo III, DO) Colon cancer GERD (gastroesophageal reflux disease) Heart murmur History of kidney cancer HTN (hypertension) Incisional hernia Surgical History Surgical History Cataracts, bilateral removed H/O hernia repair History of ankle surgery with tendon repair 2011 History of colon surgery had colon cancer removed 2017 History of kidney surgery bottom half kidney removed 2010 History of knee surgery 2018 Family History Family History Mother Diabetes mellitus Hypertension Cerebrovascular accident Grandparent Carcinoma of colon Father Cancer Other Family history of allergic disorder Family history of arthritis Family history of malignant neoplasm of breast Family history of malignant neoplasm of kidney Social History Social History Smoking status: Never smoker Smoking end date: 09/10/10 Alcohol intake: current Alcohol use details: occasional Substance use: current Substance use type: marijuana Lack of Transportation: No Lack of Food: Never True Current Housing: I Have Housing Concerned About Future Housing: No Difficulty Paying Gas/Electric Bills: No Difficulty Paying for Meds: No Currently Unemployed: No Education: Decline to Answer Difficulty w/ Childcare or Family Care: No Living arrangements: with family Occupation/Education: retired Gender identity (if verbalized by the patient): Female Exam Const: Nutritional Appearance: well nourished Limitations: altered mental status Other: pt awake but not responding to questions and not following commands HENMT: Head: normal to inspection Eyes: Conjunctivae: conjunctivae normal Pupils: Equal, round and reactive pupils present Resp: Effort & Inspection: normal respiratory effort Auscultation: clear to auscultation bilaterally Cardio: Rate: regular rate Rhythm: regular rhythm GI: GI Palp: Yes Soft to palpation Auscultation: normal bowel sounds Skin: General skin exam: normal color Neuro: Other: not respondint to questions or commands Extrem: General: normal to inspection and no clubbing, cyanosis or edema Course Vital Signs Vital signs: Vital Signs Temperature 98.6 F 10/30/24 15:02 Pulse Rate 97 07/09/24 15:02 Respiratory Rate 13 07/09/24 15:02 Blood Pressure 187/85 H 07/09/24 15:02 Pulse Oximetry 94 07/09/24 15:02 Temperature 98.6 F 07/09/24 15:02 Pulse Rate 110 H 07/09/24 21:22 Respiratory Rate 18 07/09/24 21:22 Blood Pressure 148/78 H 07/09/24 21:22 Pulse Oximetry 97 07/09/24 21:22 MDM - Altered Mental Status MDM Narrative Medical decision making narrative: pt has history of brain tumor and being weaned off steroids, certainly concern fo bleed into tumor or swelling around tumor with unresponsive state could be seizure and post ictal. Will need CT brain and labs and will call [facility] where she gets her care. finally talked to Dr Lanza as [facility] neuro surg. Pt is now awake and has non focal exam. Pt is following commands. Not back to baseline yet but definitely better. May be post ictal. He does not think it is a neurosurgical issue and doesn't need transfer. Discussed with family, would feel better if watched overnight. This occurred before and she was like she is now for most of night and then back to baseline the next morning. They are not real comfortable taking her home. discussed with Dr Bolivar and she agrees to admit. Asks to load with keppra and give po steroid dose Lab Data 07/09/24 16:53 07/09/24 16:53 Labs: Lab Results 07/09/24 07/09/24 Range/Units 16:53 18:56 WBC 18.1 H (4.5-10.0) K/mm3 RBC 4.85 (4.2-5.4) M/mm3 Hgb 15.4 H (12.0-15.0) g/dL Hct 45.2 (37.0-47.0) % MCV 93.2 (80-100) fl MCH 31.8 (26-34) pg MCHC 34.1 (32-36) g/dl RDW 13.6 (11.5-14.5) % Plt Count 251 (150-375) k/mm3 MPV 9.7 (7.4-10.4) fl Immature Gran % (Auto) 1.4 H (0-0.5) % Neut % (Auto) 82.7 H (45.5-73.1) % Lymph % (Auto) 10.5 L (18.3-44.2) % Izard % (Auto) 4.7 (2.6-8.5) % Eos % (Auto) 0.3 (0-4.4) % Baso % (Auto) 0.4 (0.2-1.2) % Lymph # (Auto) 1.89 (0.9-3.2) K/mm3 Izard # (Auto) 0.9 H (0.1-0.6) K/mm3 Eos # (Auto) 0.1 (0-0.3) K/mm3 Baso # (Auto) 0.1 (0.0-0.1) K/mm3 Abs Immat Gran (auto) 0.26 H (0.00-0.031) K/mm3 Absolute Neuts (auto) 14.9 H (1.3-6.7) K/mm3 Absolute Nucleated RBC 0.000 (0.0-0.012) K/mm3 Nucleated RBC % 0.0 (0.0-0.2) % PT 12.8 (11.1-14.7) Seconds INR 0.9 APTT 23.4 (22.3-36.8) Seconds Sodium 136 L (137-145) mmol/L Potassium 3.4 (3.4-5.0) mmol/L Chloride 99 (98-107) mmol/L Carbon Dioxide 27 (22-30) mmol/L Anion Gap 10 (4-12) mmol/L BUN 24 H (7-17) mg/dL Creatinine 1.00 (0.7-1.0) mg/dL Estim Creat Clear Calc Not Reportable Estimated GFR 54 L (59 - ) Glucose 285 H (65-110) mg/dL Calcium 9.2 (8.4-10.2) mg/dL Total Bilirubin 0.7 (0.2-1.3) mg/dL AST 31 (14-36) U/L ALT 25 (6-35) U/L Alkaline Phosphatase 174 H (38-126) U/L Total Protein 8.0 (6.3-8.2) g/dL Albumin 4.7 (3.5-5.1) g/dL Urine Color Yellow (Yellow) Urine Appearance Clear (Clear) Urine pH 6.0 (5.0-9.0) Ur Specific Himrod 1.014 (1.001-1.035) Urine Protein 3+ H (Negative) mg/dL Urine Glucose (UA) 2+ H (Negative) mg/dL Urine Ketones Negative (Negative) mg/dL Ur Blood (Man) Negative (Negative) Urine Nitrate Negative (Negative) Urine Bilirubin Negative (Negative) Urine Urobilinogen 0.2 (<2.0) mg/dL Leukocyte Esterase Rfl Negative (Negative) RISHABH/UL Urine RBC 0-2 (0-2) /hpf Urine WBC 0-5 (0-3) /hpf Ur Squamous Epith Cells None seen (Few) /hpf Urine Bacteria None seen /hpf Urine Casts 0-2 Discharge Plan Discharge Clinical Impression: Altered mental status, Seizure Patient Disposition: Still a Patient Condition: Improved Prescriptions: No Action mecobalamin (vitamin B12) 1,000 mcg tablet,chewable 1,000 mcg PO DAILY PreserVision AREDS-2 [id number] [id number]-hbir-lg-mg capsule 1 tablet PO BID Rx Instructions: administer with meals phenazopyridine [Azo Urinary Pain Relief] 95 mg tablet 95 mg PO TID PRN (Reason: Incontinence) amlodipine 5 mg tablet 5 mg PO DAILY cyanocobalamin (vitamin B-12) 5,000 mcg capsule 5,000 mcg PO DAILY levetiracetam 500 mg tablet 500 mg PO Q12H omeprazole 20 mg capsule,delayed release(DR/EC) 20 mg PO DAILY Follow-up/Referrals: UNKNOWN,DOCTOR [Primary Care Provider] -
[2024-07-09 16:59] LABS: Basophils Absolute Auto 0.1 K/mm3 (0.0-0.1); Basophils Percent Auto 0.4 % (0.2-1.2); Eosinophils Absolute Auto 0.1 K/mm3 (0-0.3); Eosinophils Percent Auto 0.3 % (0-4.4); Hematocrit 45.2 % (37.0-47.0); Hemoglobin 15.4 g/dL (12.0-15.0); Immature Granulocyte Absolute 0.26 K/mm3 (0.00-0.031); Immature Granulocyte Percent A 1.4 % (0-0.5); Lymphocytes Absolute Auto 1.89 K/mm3 (0.9-3.2); Lymphocytes Percent Auto 10.5 % (18.3-44.2); Mean Corpuscular HGB Conc 34.1 g/dl (32-36); Mean Corpuscular Hemoglobin 31.8 pg (26-34); Mean Corpuscular Volume 93.2 fl (80-100); Mean Platelet Volume 9.7 fl (7.4-10.4); Monocytes Absolute Auto 0.9 K/mm3 (0.1-0.6); Monocytes Percent Auto 4.7 % (2.6-8.5); Neutrophils Absolute Auto 14.9 K/mm3 (1.3-6.7); Neutrophils Percent Auto 82.7 % (45.5-73.1); Platelet Count Result 251 k/mm3 (150-375); Red Blood Count 4.85 M/mm3 (4.2-5.4); Red Cell Distribution Width 13.6 % (11.5-14.5); White Blood Count 18.1 K/mm3 (4.5-10.0)
[2024-07-09 17:10] LABS: Alanine Aminotransferase 25 U/L (6-35); Albumin Level 4.7 g/dL (3.5-5.1); Alkaline Phosphatase 174 U/L (38-126); Anion Gap 10 mmol/L (4-12); Aspartate Amino Transferase 31 U/L (14-36); Bilirubin,Total 0.7 mg/dL (0.2-1.3); Blood Urea Nitrogen 24 mg/dL (7-17); Calcium 9.2 mg/dL (8.4-10.2); Carbon Dioxide 27 mmol/L (22-30); Chloride 99 mmol/L (98-107); Estimated Glomerular Filt Rate 54; Glucose 285 mg/dL (65-110); Potassium 3.4 mmol/L (3.4-5.0); Sodium 136 mmol/L (137-145)
[2024-07-09 17:14] LABS: INR 0.9; Prothrombin Time 12.8 Seconds (11.1-14.7)
[2024-07-09 17:15] LABS: Partial Thromboplastin Time 23.4 Seconds (22.3-36.8)
[2024-07-09] MEDS: ONDANSETRON INJ 4 MG/2 ML VIAL IV PUSH ×2 (18:43→22:48)
[2024-07-09 19:46] LABS: Add Urine Microscopic? YES; Appearance Urine Clear (Clear); Bacteria Urine None Seen /hpf; Bilirubin Urine Negative (Negative); Blood Urine Negative (Negative); Color Urine Yellow (Yellow); Glucose Urine UA 2+ mg/dL (Negative); Ketones Urine Negative (Negative); Leukocyte Esterase Ur Negative LEU/UL (Negative); Nitrate Urine Negative (Negative); Non Pathogenic Casts 0-2; Protein Urine 3+ mg/dL (Negative); RBC Urine 0-2 /hpf (0-2); Specific Grav Ur 1.014 (1.001-1.035); Squamous Epithelial Cell Urine None Seen /hpf (Few); Urobilinogen Urine 0.2 mg/dL (<2.0); WBC Urine 0-5 /hpf (0-3)
--- NOTE | 2024-07-09 21:02 | PC.NURSE ---
Patient requesting to ambulate around the room-EDP aware and okay with it. Patient performed this with this RN's assistance. She was able to take a few steps, but wanted to sit back down due to being nauseous. Patient requests no nausea medicine be administered. Patient requesting to be in her own clothes. Family to bring her pedro from home.
[2024-07-09] MEDS: dexAMETHasone SOD PHOS INJ 10 MG/ML 1 ML VIAL IV PUSH (22:48)
[2024-07-09] MEDS: levETIRAcetam IV 750 MG in DEXTROSE 5% 100 ML 430 MG IVPB (22:49)
[2024-07-10] VITALS (29 sets, daily range): BP systolic 77–150; BP diastolic 60–91; PULSE 66–118; RESP 13–21; TEMP 37.7–38.3; O2SAT 96–100; BMI 28.8
--- NOTE | 2024-07-10 04:13 | ADMGEN ---
This patient, Philomena Mckee, was admitted to Medical Room 252-01. Patient/family oriented to hospital policies and general routines including ID bracelet, bed and alarms, visiting hours, pain management, procedures, bathroom and other care routines, personal items, smoking policy, room service/diet, and visiting hours. Information on how to activate the Rapid Response Team has been discussed. Patient/Family are encouraged to report perceived risks to care and to ask questions if they do not understand what they are told or what they should do.
--- NOTE | 2024-07-10 05:01 | PC.NURSE ---
At times she will answer questions appropriately and follow commands, then other times she will seem to not hear or comprehend instructions. Throughout my 30 minute assessment she went into a nonverbal state, eyes rolled into the back of her head, left arm raises off bed, elbow & wrist contract, fist clenches shut, not responding to verbal or physical stimuli. Mouth clenches closed. Episodes lasted about 15 secs, she did this 3 different times. Eyes opened back up and she would stare off into space a few minutes, then I was able to ask her a few more questions.
--- NOTE | 2024-07-10 05:11 | PC.NURSE ---
ED reports that her IV infiltrated causing the large bruise to her left arm/hand. Bruise starts at her elbow and extends down to her fingers. Arm & hand is edematous, pulse present. Discoloration is oulined.
--- NOTE | 2024-07-10 06:51 | PM.IMHP ---
H&P: HPI History of Present Illness Date/Time: 07/10/24 06:51 Chief Complaint: seizure Narrative: 78 year old female with past medical history of hypertension, hx of renal cell carcinoma s/p partial nephrectomy, history of colon cancer and a brain tumor s/p resection in 2019 and now has another tumor (mets from kidney cancer) for which she is undergoing radiation as it is too close to a vessel. Patient had brain swelling for which she was on steroids and is on her last dose of a wean. She takes Keppra for prior seizures. She presents to the hospital for altered mental status. Majority of the history was obtained from patients granddaughter Casie, patient gives additional information as able between seizures. The granddaughter states that the patient was sitting on the couch last night when she became confused unable to answer questions or follow commands. She states that she was unable to move her left arm or leg at all. Patient had a similar episode earlier in May where she started having increased confusion and left extremity weakness which resulted in her going to [facility] for further evaluation. While hospitalized these symptoms completely resolved and she was discharged the following day. Patient had several witnessed complex seizure activity on 07/10 where patients left arm moved to her chest and left leg went in the air with associated shaking. These were occurring approximately every 5-10 minutes and lasted < 1 min. Postictal state after each episode followed by a moment of clarity where patient could answer questions before going into another episode. Evaluated patient with neurology while she was having active seizures. Discussed patient with Dr. Wagner and she was given a loading dose of keppra 1000 mg IV, then one hour later she continued to have seizures and received another 500 mg IV. Patient was started on 1000 mg IV keppra TID. Ativan 2 mg IV given for continued seizures. Returned to patients room and call was made to Dr. Wagner as patient continues to have recurrent seizures every 7-10 minutes now. Patient is to be transferred to ICU for closer monitoring and likely going to require a Dilantin drip. Discussed patient with Dr. Tang and she is to be transferred to the ICU. ED workup: CBC with leukocytosis 18.1. Chemistry unremarkable. Glucose 285. LFTs WNL. Urine non concerning for infection. Head CT: No acute intracranial process, but small region of encephalomalacia in the right parietal lobe at the site of a resected prior mass reportedly metastatic renal cell carcinoma. Chest XR: mild interstitial edema. Per chart review, ED Dr. Arredondo spoke with Dr. Lanza ([facility] neuro surg) who states he does not think it is a neurosurgical issue and doesn't need transfer. Review of Systems Review of Systems: All systems reviewed & are unremarkable except as noted in HPI and below PMFSH Past Medical History Medical History Colon cancer GERD (gastroesophageal reflux disease) Heart murmur History of kidney cancer HTN (hypertension) Incisional hernia Surgical History Surgical History Cataracts, bilateral removed H/O hernia repair History of ankle surgery with tendon repair 2011 History of colon surgery had colon cancer removed 2017 History of kidney surgery bottom half kidney removed 2010 History of knee surgery 2019 Family History Family History Mother Diabetes mellitus Hypertension Cerebrovascular accident Grandparent Carcinoma of colon Father Cancer Other Family history of allergic disorder Family history of arthritis Family history of malignant neoplasm of breast Family history of malignant neoplasm of kidney Social History Social History (Updated 07/10/24 @ 13:23 by Corine Anderson PA-C) Social History: Lives at home with and son. 1 dog. Smoking packs per day: 0.5 Smoking cigarettes per day: 10.0 Years smoked: 20 Smoking pack-years: 10.00 Smoking status: Former smoker Tobacco type: cigarettes Smoking end date: 09/10/10 Alcohol intake: current Alcohol use details: occasional Substance use: current Substance use type: marijuana Do You Feel Safe in your Home?: Yes Lack of Transportation: No Lack of Food: Never True Current Housing: I Have Housing Concerned About Future Housing: No Difficulty Paying Gas/Electric Bills: No Difficulty Paying for Meds: No Currently Unemployed: No Education: Decline to Answer Difficulty w/ Childcare or Family Care: No Living arrangements: with family Occupation/Education: retired Gender identity (if verbalized by the patient): Female Spiritual care concerns: No Meds Home Medications and Allergies Home Medications Medication Instructions Recorded Confirmed Type mecobalamin (vitamin B12) 1,000 1,000 mcg PO DAILY 01/12/20 07/10/24 History mcg chewable tablet vit C 250 mg-vit E 90 mg-zinc 40 1 tablet PO DAILY 01/12/20 07/10/24 History mg-copper 1 [id number] capsule (PreserVision AREDS-2) amlodipine 5 mg tablet 5 mg PO DAILY 12/09/21 07/10/24 History cyanocobalamin (vitamin B-12) 5,000 mcg PO DAILY 12/09/21 07/10/24 History 5,000 mcg capsule omeprazole 20 mg capsule,delayed 20 mg PO DAILY 12/09/21 07/10/24 History release phenazopyridine 95 mg tablet (Azo 95 mg PO BID Incontinence 01/02/22 07/10/24 History Urinary Pain Relief) dexamethasone 2 mg tablet 2 mg PO BID 07/10/24 07/10/24 History levetiracetam 750 mg tablet 750 mg PO Q12H 07/10/24 07/10/24 History loratadine 10 mg tablet 10 mg PO DAILY 07/10/24 07/10/24 History Allergies Allergy/AdvReac Type Severity Reaction Status Date / Time ciprofloxacin Allergy Unknown unknown Verified 07/10/24 04:49 clindamycin Allergy Unknown unknown Verified 07/10/24 04:49 latex Allergy Unknown sentive Verified 07/10/24 04:49 not really alergic mold Allergy Unknown trouble Verified 07/10/24 04:49 breathing nitrofurantoin Allergy Unknown shuts down Verified 07/10/24 04:49 systems pollen extracts Allergy Unknown respirator Verified 07/10/24 04:49 y Sulfa (Sulfonamide Allergy Unknown unknown Verified 07/10/24 04:49 Antibiotics) clarithromycin AdvReac Mild RASH AND Verified 07/10/24 04:49 BURNING CEFTRIAXONE SODIUM AdvReac Mild RASH Uncoded 07/10/24 04:49 Vital Signs Vital Signs - 24 hr 07/09/24 15:02 07/09/24 15:11 07/09/24 15:12 Temperature 98.6 F Pulse Rate 97 84 90 Respiratory Rate 13 14 25 H Blood Pressure 187/85 H 189/90 H Pulse Oximetry 94 94 Oxygen Delivery 07/09/24 15:15 07/09/24 15:16 07/09/24 15:30 Temperature Pulse Rate 95 101 H 110 H Respiratory Rate 19 20 12 Blood Pressure 202/83 H Pulse Oximetry 96 95 97 Oxygen Delivery 07/09/24 15:31 07/09/24 15:40 07/09/24 15:45 Temperature Pulse Rate 113 H 118 H 126 H Respiratory Rate 12 14 19 Blood Pressure 205/98 H 211/98 H Pulse Oximetry 97 Oxygen Delivery 07/09/24 15:46 07/09/24 16:00 07/09/24 16:01 Temperature Pulse Rate 129 H 127 H 132 H Respiratory Rate 22 H 23 H 13 Blood Pressure 210/116 H 202/112 H Pulse Oximetry Oxygen Delivery 07/09/24 16:15 07/09/24 16:31 07/09/24 16:33 Temperature Pulse Rate 130 H 123 H Respiratory Rate 18 44 H Blood Pressure 180/101 H Pulse Oximetry 95 96 Oxygen Delivery 07/09/24 16:45 07/09/24 16:46 07/09/24 17:00 Temperature Pulse Rate 127 H 128 H 130 H Respiratory Rate 21 H 16 14 Blood Pressure 181/113 H Pulse Oximetry 98 Oxygen Delivery 07/09/24 17:01 07/09/24 17:15 07/09/24 17:16 Temperature Pulse Rate 132 H 132 H Respiratory Rate 24 H Blood Pressure 195/109 H 172/107 H Pulse Oximetry 98 Oxygen Delivery 07/09/24 17:30 07/09/24 17:31 07/09/24 17:45 Temperature Pulse Rate 129 H 130 H Respiratory Rate 12 14 Blood Pressure 166/107 H Pulse Oximetry 98 98 98 Oxygen Delivery 07/09/24 17:46 07/09/24 18:00 07/09/24 18:01 Temperature Pulse Rate 131 H 123 H Respiratory Rate 12 28 H Blood Pressure 190/106 H 194/105 H Pulse Oximetry 97 98 97 Oxygen Delivery 07/09/24 18:15 07/09/24 18:16 07/09/24 18:31 Temperature Pulse Rate 124 H 130 H Respiratory Rate 20 21 H Blood Pressure 184/96 H 175/93 H Pulse Oximetry 98 Oxygen Delivery 07/09/24 18:42 07/09/24 21:22 07/09/24 22:54 Temperature Pulse Rate 125 H 110 H Respiratory Rate 10 L 18 Blood Pressure 148/78 H Pulse Oximetry 97 97 Oxygen Delivery Room Air 07/09/24 23:45 07/10/24 01:36 07/10/24 04:40 Temperature Pulse Rate 112 H 108 H Respiratory Rate 15 15 Blood Pressure 152/74 H 142/72 H Pulse Oximetry 96 97 Oxygen Delivery Room Air 07/10/24 04:00 07/10/24 04:28 Temperature 100 F H Pulse Rate 118 H 112 H Respiratory Rate 20 Blood Pressure 150/91 H Pulse Oximetry 96 Oxygen Delivery Exam Narrative: AF HR 1121 RR 20 SpO2 96 BP 150/91 General: female in no acute respiratory distress who is nontoxic appearing, lying semi recumbent in bed. HEENT: Normocephalic. Atraumatic. Pupils equal round reactive to light. Extraocular movement intact. Sclera clear and anicteric. No facial asymmetry. Neck: Neck was supple. No dominant adenopathy, thyromegaly or masses. Chest: Lungs are clear to auscultation bilaterally. No wheezes or crackles. CV: Heart was regular rate and rhythm. S1-S2. No murmurs, gallops, or rubs. Abd: Abdomen was soft. Nontender. Nondistended. Positive bowel sounds. No organomegaly or masses. Ext: No clubbing, cyanosis, or edema. 2+ DP pulses bilaterally. Neuro: Witnessed complex seizure activity on where patients left arm moved to her chest and left leg went in the air with associated shaking. These were occurring approximately every 5-10 minutes and lasted < 1 min. Postictal state after each episode followed by a moment of clarity Strength is 5/5 in upper and lower right extremity. 3/5 strength in the left upper and lower extremity. Speech is clear. Psych: Normal mood and affect. Patient is pleasant and cooperative. Skin: Warm and dry. No rashes noted. H&P: Results Labs Labs: Short CBC 07/09/24 Range/Units 16:53 WBC 18.1 H (4.5-10.0) K/mm3 Hgb 15.4 H (12.0-15.0) g/dL Hct 45.2 (37.0-47.0) % Plt Count 251 (150-375) k/mm3 BMP 07/09/24 16:53 Sodium 136 L Potassium 3.4 Chloride 99 Carbon Dioxide 27 BUN 24 H Creatinine 1.00 Glucose 285 H Calcium 9.2 Liver Function 07/09/24 Range/Units 16:53 Total Bilirubin 0.7 (0.2-1.3) mg/dL AST 31 (14-36) U/L ALT 25 (6-35) U/L Alkaline Phosphatase 174 H (38-126) U/L Albumin 4.7 (3.5-5.1) g/dL Urine 07/09/24 Range/Units 18:56 Urine Color Yellow (Yellow) Urine Appearance Clear (Clear) Urine pH 6.0 (5.0-9.0) Ur Specific [place] 1.014 (1.001-1.035) Urine Protein 3+ H (Negative) mg/dL Urine Glucose (UA) 2+ H (Negative) mg/dL Assessment and Plan Assessment and plan (1) Seizure: Code(s): R56.9 - Unspecified convulsions Status: Acute Assessment and Plan: Patient was at baseline in the morning then became less responsive not following any commands later in the afternoon. Hx of brain tumor s/p resection in 2019 and now has another tumor for which she recently completed radiation for as it is too close to a vessel. Patient had brain swelling for which she was on steroids and is on her last dose of a wean. Ddx: seizure vs mass effect of brain tumor vs brain swelling vs other Per chart review, ED Dr. Arredondo spoke with Dr. Lanza ([facility] neuro surg) who states he does not think it is a neurosurgical issue and doesn't need transfer. - Witnessed complex seizure activity on 07/10 where patients left arm moved to her chest and left leg went in the air with associated shaking. These were occurring approximately every 5-10 minutes and lasted < 1 min. Postictal state after each episode followed by a moment of clarity where patient could answer questions before going into another episode. - WBC 19.7, leukocytosis likely secondary to steroid use and inflammation secondary to recurrent seizures - Head CT: No acute intracranial process, but small region of encephalomalacia in the right parietal lobe at the site of a resected prior mass reportedly metastatic renal cell carcinoma. - Chest XR: mild interstitial edema. - Urine non concerning for infection - Received loading dose of keppra and was placed back on keppra 750 mg BID in the ED - Neuro consulted Evaluated patient with neurology while she was having active seizures. Discussed patient with Dr. Wagner and she was given a loading dose of keppra 1000 mg IV, then one hour later she continued to have seizures and received another 500 mg IV. Patient was started on 1000 mg IV keppra TID. Ativan 2 mg IV given for continued seizures. Call made to Dr. Wagner as patient continues to have recurrent seizures every 7-10 minutes now. Patient is to be transferred to ICU for closer monitoring and likely going to require a Dilantin drip. Discussed patient with Dr. Tang and she is to be transferred to the ICU. (2) HTN (hypertension): Code(s): I10 - Essential (primary) hypertension Status: Acute Assessment and Plan: Chronic, continue home medications. - Amlodipine 5 mg daily - Monitor Quality VTE Prophylaxis VTE prophylaxis: mechanical ordered Hospitalist [facility] Advance Care Plan I have confirmed that the patient's Advanced Care Plan is present, code status is documented, or surrogate decision maker is listed in patient medical record.: Yes Medication Reconciliation I have utilized all available resources to obtain, update and review the patients current medications (includes all prescriptions, OTC, herbals, cannabis, and nutritional supplements).: Yes
[2024-07-10] MEDS: levETIRAcetam Tablet 250 MG, levETIRAcetam Tablet 500 MG 750 MG PO (08:24)
[2024-07-10] MEDS: CYANOCOBALAMIN 1,000 MCG TABLET 5000 MCG PO (08:24)
[2024-07-10] MEDS: amLODIPine BESYLATE 5 MG TABLET PO (08:24)
[2024-07-10] MEDS: PANTOPRAZOLE 40 MG TABLET PO (08:24)
[2024-07-10 08:42] LABS: Basophils Percent Auto 0.2 % (0.2-1.2); Hematocrit 45.5 % (37.0-47.0); Hemoglobin 15.5 g/dL (12.0-15.0); Immature Granulocyte Absolute 0.15 K/mm3 (0.00-0.031); Immature Granulocyte Percent A 0.8 % (0-0.5); Lymphocytes Absolute Auto 0.91 K/mm3 (0.9-3.2); Lymphocytes Percent Auto 4.6 % (18.3-44.2); Mean Corpuscular HGB Conc 34.1 g/dl (32-36); Mean Corpuscular Hemoglobin 30.8 pg (26-34); Mean Corpuscular Volume 90.5 fl (80-100); Mean Platelet Volume 9.9 fl (7.4-10.4); Monocytes Percent Auto 4.9 % (2.6-8.5); Neutrophils Absolute Auto 17.7 K/mm3 (1.3-6.7); Neutrophils Percent Auto 89.5 % (45.5-73.1); Platelet Count Result 244 k/mm3 (150-375); Red Blood Count 5.03 M/mm3 (4.2-5.4); Red Cell Distribution Width 13.8 % (11.5-14.5); White Blood Count 19.7 K/mm3 (4.5-10.0)
[2024-07-10 08:50] LABS: Alanine Aminotransferase 32 U/L (6-35); Albumin Level 4.7 g/dL (3.5-5.1); Alkaline Phosphatase 133 U/L (38-126); Anion Gap 11 mmol/L (4-12); Aspartate Amino Transferase 60 U/L (14-36); Bilirubin,Total 0.9 mg/dL (0.2-1.3); Blood Urea Nitrogen 20 mg/dL (7-17); Calcium 9.8 mg/dL (8.4-10.2); Carbon Dioxide 26 mmol/L (22-30); Chloride 97 mmol/L (98-107); Estimated CRCL calculation 48 ml/min; Estimated Glomerular Filt Rate > 60; Glucose 145 mg/dL (65-110); Potassium 3.8 mmol/L (3.4-5.0); Sodium 134 mmol/L (137-145)
[2024-07-10] MEDS: levETIRAcetam 1000MG/NACL100ML 1,000 MG/100 ML BAG 400 MG IVPB ×2 (10:53→21:01)
[2024-07-10] MEDS: levETIRAcetam 500MG/NACL 100ML 500 MG/100 ML BAG 400 MG IVPB (12:44)
[2024-07-10] MEDS: LORazepam INJ (*CRX) 2 MG/ML VIAL IV PUSH (13:53)
--- NOTE | 2024-07-10 14:47 | PC.NURSE ---
This patient, Philomena Mckee, was transferred to ICU on 07/10/24 at 1447. Personal belongings sent with patient. Report given to ROLAND William. Appropriate documentation sent with patient.
[2024-07-10] MEDS: ETOMIDATE 20 MG/10 ML AMPUL IV PUSH (15:00)
[2024-07-10] MEDS: ROCURONIUM BROMIDE 50 MG/5 ML VIAL IV PUSH (15:02)
[2024-07-10] MEDS: LACTATED RINGERS 1,000 ML 999 ML IV CONT ×2 (15:20→16:50)
[2024-07-10] MEDS: PROPOFOL IV EMULSION 100 ML 4.3 MG IV CONT (15:34)
--- NOTE | 2024-07-10 15:34 | WPDPROCEDUR ---
Procedures Intubation Intubation Date: 07/10/24 Intubation Time: 15:05 Consent: Discussed with patient's , Heriberto, updated with patient's condition and plan of care. He is aware that she is having intermittent seizures and is in status epilepticus. I told him that patient's needs to be sedated for her seizure activity and have to put in a breathing tube and connected to a breathing machine to protect her airway and to protect her from aspiration. He was agreeable and consented to intubation as well as central line placement A pre-procedural Time-Out was completed immediately before starting the procedure and confirmed: Patient Identification, Site, Procedure, Patient Position and the Availability of Requisite Equipment: Yes Sedative: etomidate Paralytic: rocuronium Laryngoscope: fiber optic video scope Assist device used: fiber optic device ET tube size: 7.5 Tube secured depth (cm): 23 Tube secured location: lips Tube placement confirmation: visualized tube passing through cords, equal breath sounds bilaterally, no breath sounds over epigastrium and confirmation by capnometry Patient tolerated procedure: well Intubation complications: none
--- NOTE | 2024-07-10 15:38 | WPDPROCEDUR ---
Procedures Central Line Placement Right IJ: Central Line Date: 07/10/24 Central Line Time: 15:38 Discussed w/ the patient/family/POA,the placement of a central venous catheter, including its clinical necessity/indication & associated potential risks, benifits and alternatives.: Yes The patient/family/POA understand(s) and acknowledge(s) the need to proceed with central venous catheter insertion as an important element of the patient's clinical management.: Yes Consent: I have discussed with the patient and/or surrogate, the non-emergent placement of a central venous catheter, including its clinical necessity/indication and associated potential risks and complications. The patient and/or surrogate understand(s) and acknowledge(s) the need to proceed with central venous catheter insertion as an important element of the patient's clinical management. Time Out Performed: Yes Patient Position: supine Patient placed on monitor/pulse ox: Yes Provider Prep: sterile gown, sterile gloves, Max. sterile barrier precautions, cap and hand hygiene with conventional soap/water or alcohol based hand rub Central line prep: 2% Chlorhexidine scrub Local anesthesia used: lidocaine 1% Amount of anesthesia used (ml): 2 Sterile US Technique with sterile gel/sterile probe covers: Yes Central line lumen inserted: triple Georgian: 12 Length (cm): 16 Depth of Insertion (cm): 16 Post Procedure: sutured in place, good blood return, all ports aspirated, flushed, capped, transparent dressing, hemostatic product, antimicrobial product, securement product and aseptic technique maintained throughout procedure Post procedure x-ray: tip of catheter in good position and no pneumothorax seen Patient tolerated procedure: well Complications: none
--- NOTE | 2024-07-10 15:48 | WPDCNINT ---
Assessment and Plan Assessment and plan (1) Seizure: Code(s): R56.9 - Unspecified convulsions Status: Acute Assessment and Plan: Patient presented with altered mental status, seizure activity noted in the ER, patient was admitted to the medical floor which she had multiple episodes at regular intervals, likely classifying into status epilepticus -patient was transfer the ICU, intubated on arrival the to sonorous respirations and airway protection. -place patient on propofol infusion for sedation, which also has anti seizure activity -patient is already on Keppra 1000 mg IV q.8 hours -placed patient on Dilantin 100 mg IV q.8 hours -discussed with neurology who also requested to add Dilantin 18 mg/kg IVPB x1 infusion -p.r.n. Ativan for breakthrough seizures 07/09/2024 CT brain 1. No acute intracranial process. 2. Small region of encephalomalacia in the right parietal lobe at the site of a resected prior mass reportedly metastatic renal cell carcinoma. (2) Altered mental status: Code(s): R41.82 - Altered mental status, unspecified Status: Acute Assessment and Plan: Altered mental status likely due to lose seizures and postictal state, currently intubated and sedated (3) Respiratory failure: Code(s): J96.90 - Respiratory failure, unspecified, unspecified whether with hypoxia or hypercapnia Status: Acute Assessment and Plan: 07/10; intubated patient for airway protection, as she had sonorous respirations with altered mental status and status epilepticus -continue CMV mode of ventilation, peep of 5, 100% FiO2 for now -will obtain post intubation ABGs in adjust ventilator accordingly -sedated with propofol, maintain RASS of -2 -daily SBT and SAT -chest x-ray post intubation shows ET tube and right IJ central line in appropriate position (4) Metastatic renal cell carcinoma: Code(s): C64.9 - Malignant neoplasm of unspecified kidney, except renal pelvis Status: Acute Assessment and Plan: History of kidney cancer with Mets to the brain, brain tumor s/p resection in 2019 and now has another tumor (mets from kidney cancer) for which she is undergoing radiation as it is too close to a vessel, cerebral edema for which she was on steroids is being weaned off -07/09: head CT on admission does not show mass effect or cerebral edema -continue to monitor (5) HTN (hypertension): Code(s): I10 - Essential (primary) hypertension Status: Acute Assessment and Plan: Will hold all antihypertensives for now, as patient is intubated, sedated with propofol, borderline blood pressures Plan DVT prophylaxis: SCDs Stress ulcer prophylaxis: Protonix Nutrition: NPO Code Status: Full code Critical Care Time Spent: 55 minutes Discussed with patient's , Heriberto and her daughter and granddaughter and updated them with patient's condition and plan of care. They are aware that she has possible status epilepticus, did consent for procedures. They are also aware that patient is on 2 antiepileptic medications along with propofol infusion. Answered all questions Due to a high probability of clinically significant, life threatening deterioration, the patient required my highest level of preparedness to intervene emergently and I personally spent this critical care time directly and personally managing the patient. This critical care time included obtaining a history; examining the patient; pulse oximetry; ordering and review of studies; arranging urgent treatment with development of a management plan; evaluation of patient's response to treatment; frequent reassessment; and discussions with other providers. It was exclusive of separately billable procedures and treating other patients and teaching time. Please see Assessment and Plan section and the rest of the note for further information on patient assessment and treatment This dictation may have been done utilizing a voice recognition system. Attempts have been made to correct errors. However, there may be uncorrected grammatical, spelling, and recognitions errors present. [employer] Consult Note Consult date: 07/10/24 Reason for consult: Seizures, altered mental status, status epilepticus HPI: Philomena Mckee is a 78 year old female past medical history of colon cancer, gastroesophageal reflux disease, heart murmur, history of kidney cancer with Mets to the brain, brain tumor s/p resection in 2019 and now has another tumor (mets from kidney cancer) for which she is undergoing radiation as it is too close to a vessel, cerebral edema for which she was on steroids is being weaned off, essential hypertension, history of seizures for which she is on Keppra, presented the ED on 07/09/2024 with complains of altered mental status and seizure activity. Patient has been having multiple seizure approximately at least 5-10 minutes lasting for less than 1 minute and has been going on for more than 1 hour. Patient is postictal and wakes up and is able to answer few questions followed by another seizure activity. Patient received a total of 2500 mg of IV Keppra, Ativan 2 mg IV x1 and was transferred to the ICU for further management. -CT brain 07/09: 1. No acute intracranial process. 2. Small region of encephalomalacia in the right parietal lobe at the site of a resected prior mass reportedly metastatic renal cell carcinoma. Pertinent labs on admission: WBC count 18.1, hemoglobin 15.4, platelets 251, INR 0.9. Sodium 136, potassium 3.4, CO2 27, BUN 24, creatinine 1.00, glucose was 285, UA was negative Patient was transferred to the ICU for likely status epilepticus, patient was intubated upon arrival to the ICU for sonorous respirations and altered mental status, along with airway protection. Patient response to pain stimuli but does not open her eyes or follow simple commands. Hemodynamically stable, currently intubated and sedated with propofol, adequate O2 sats. Review of Systems Review of Systems: ROS unobtainable: Yes unobtainable due to endotracheal tube, unobtainable due to medical condition and unobtainable due to mental status [facility] Past Medical History Medical History Colon cancer GERD (gastroesophageal reflux disease) Heart murmur History of kidney cancer HTN (hypertension) Incisional hernia Surgical History Surgical History Cataracts, bilateral removed H/O hernia repair History of ankle surgery with tendon repair 2011 History of colon surgery had colon cancer removed 2017 History of kidney surgery bottom half kidney removed 2010 History of knee surgery 2019 Family History Family History Mother Diabetes mellitus Hypertension Cerebrovascular accident Grandparent Carcinoma of colon Father Cancer Other Family history of allergic disorder Family history of arthritis Family history of malignant neoplasm of breast Family history of malignant neoplasm of kidney Social History Social History (Updated 07/10/24 @ 13:23 by Corine Anderson PA-C) Social History: Lives at home with and son. 1 dog. Smoking packs per day: 0.5 Smoking cigarettes per day: 10.0 Years smoked: 20 Smoking pack-years: 10.00 Smoking status: Former smoker Tobacco type: cigarettes Smoking end date: 09/10/10 Alcohol intake: current Alcohol use details: occasional Substance use: current Substance use type: marijuana Do You Feel Safe in your Home?: Yes Lack of Transportation: No Lack of Food: Never True Current Housing: I Have Housing Concerned About Future Housing: No Difficulty Paying Gas/Electric Bills: No Difficulty Paying for Meds: No Currently Unemployed: No Education: Decline to Answer Difficulty w/ Childcare or Family Care: No Living arrangements: with family Occupation/Education: retired Gender identity (if verbalized by the patient): Female Spiritual care concerns: No Meds Home Medications and Allergies Home Medications Medication Instructions Recorded Confirmed Type mecobalamin (vitamin B12) 1,000 1,000 mcg PO DAILY 01/12/20 07/10/24 History mcg chewable tablet vit C 250 mg-vit E 90 mg-zinc 40 1 tablet PO DAILY 01/12/20 07/10/24 History mg-copper 1 [id number] capsule (PreserVision AREDS-2) amlodipine 5 mg tablet 5 mg PO DAILY 12/09/21 07/10/24 History cyanocobalamin (vitamin B-12) 5,000 mcg PO DAILY 12/09/21 07/10/24 History 5,000 mcg capsule omeprazole 20 mg capsule,delayed 20 mg PO DAILY 12/09/21 07/10/24 History release phenazopyridine 95 mg tablet (Azo 95 mg PO BID Incontinence 01/02/22 07/10/24 History Urinary Pain Relief) dexamethasone 2 mg tablet 2 mg PO BID 07/10/24 07/10/24 History levetiracetam 750 mg tablet 750 mg PO Q12H 07/10/24 07/10/24 History loratadine 10 mg tablet 10 mg PO DAILY 07/10/24 07/10/24 History Allergies Allergy/AdvReac Type Severity Reaction Status Date / Time ciprofloxacin Allergy Unknown unknown Verified 07/10/24 04:49 clindamycin Allergy Unknown unknown Verified 07/10/24 04:49 latex Allergy Unknown sentive Verified 07/10/24 04:49 not really alergic mold Allergy Unknown trouble Verified 07/10/24 04:49 breathing nitrofurantoin Allergy Unknown shuts down Verified 07/10/24 04:49 systems pollen extracts Allergy Unknown respirator Verified 07/10/24 04:49 y Sulfa (Sulfonamide Allergy Unknown unknown Verified 07/10/24 04:49 Antibiotics) clarithromycin AdvReac Mild RASH AND Verified 07/10/24 04:49 BURNING CEFTRIAXONE SODIUM AdvReac Mild RASH Uncoded 07/10/24 04:49 Vital Signs Vital Signs - 24 hr 07/09/24 16:00 07/09/24 16:01 07/09/24 16:15 Temperature Pulse Rate 127 H 132 H 130 H Respiratory Rate 23 H 13 18 Blood Pressure 202/112 H Pulse Oximetry Oxygen Delivery Fraction of Inspired Oxygen 07/09/24 16:31 07/09/24 16:33 07/09/24 16:45 Temperature Pulse Rate 123 H 127 H Respiratory Rate 44 H 21 H Blood Pressure 180/101 H Pulse Oximetry 95 96 Oxygen Delivery Fraction of Inspired Oxygen 07/09/24 16:46 07/09/24 17:00 07/09/24 17:01 Temperature Pulse Rate 128 H 130 H 132 H Respiratory Rate 16 14 24 H Blood Pressure 181/113 H 195/109 H Pulse Oximetry 98 98 Oxygen Delivery Fraction of Inspired Oxygen 07/09/24 17:15 07/09/24 17:16 07/09/24 17:30 Temperature Pulse Rate 132 H 129 H Respiratory Rate 12 Blood Pressure 172/107 H Pulse Oximetry 98 Oxygen Delivery Fraction of Inspired Oxygen 07/09/24 17:31 07/09/24 17:45 07/09/24 17:46 Temperature Pulse Rate 130 H Respiratory Rate 14 Blood Pressure 166/107 H 190/106 H Pulse Oximetry 98 98 97 Oxygen Delivery Fraction of Inspired Oxygen 07/09/24 18:00 07/09/24 18:01 07/09/24 18:15 Temperature Pulse Rate 131 H 123 H 124 H Respiratory Rate 12 28 H 20 Blood Pressure 194/105 H Pulse Oximetry 98 97 Oxygen Delivery Fraction of Inspired Oxygen 07/09/24 18:16 07/09/24 18:31 07/09/24 18:42 Temperature Pulse Rate 130 H 125 H Respiratory Rate 21 H 10 L Blood Pressure 184/96 H 175/93 H Pulse Oximetry 98 97 Oxygen Delivery Fraction of Inspired Oxygen 07/09/24 21:22 07/09/24 22:54 07/09/24 23:45 Temperature Pulse Rate 110 H 112 H Respiratory Rate 18 15 Blood Pressure 148/78 H 152/74 H Pulse Oximetry 97 96 Oxygen Delivery Room Air Fraction of Inspired Oxygen 07/10/24 01:36 07/10/24 04:40 07/10/24 04:00 Temperature Pulse Rate 108 H 118 H Respiratory Rate 15 Blood Pressure 142/72 H Pulse Oximetry 97 Oxygen Delivery Room Air Fraction of Inspired Oxygen 07/10/24 04:28 07/10/24 09:44 07/10/24 08:00 Temperature 100 F H Pulse Rate 112 H Respiratory Rate 20 Blood Pressure 150/91 H Pulse Oximetry 96 97 Oxygen Delivery Room Air Room Air Fraction of Inspired Oxygen 07/10/24 08:00 07/10/24 12:00 07/10/24 15:10 Temperature Pulse Rate 112 H 110 H 89 Respiratory Rate Blood Pressure Pulse Oximetry 100 Oxygen Delivery Mechanical Ventilation Fraction of Inspired Oxygen 100 Exam Narrative: General: Intubated, sedated in no acute distress HEENT:? Pupils equal and reactive Neck:? Supple Respiratory:? Clear to auscultation bilateral, no wheezing, adequate air entry Cardiac:? S1-S2 was normal, regular rate and rhythm Abdomen:? Soft, nontender, nondistended, hypoactive bowel sound Extremities:? No edema, palpable pedal pulses Neuro:? Intubated, sedated, does not open her eyes or follow simple commands, no seizure activities noted Skin:? Ecchymosis on the upper arms Psych:? Unable to assess at this time Results Labs 07/10/24 08:06 07/10/24 08:06 Labs: Short CBC 07/09/24 07/10/24 Range/Units 16:53 08:06 WBC 18.1 H 19.7 H (4.5-10.0) K/mm3 Hgb 15.4 H 15.5 H (12.0-15.0) g/dL Hct 45.2 45.5 (37.0-47.0) % Plt Count 251 244 (150-375) k/mm3 BMP 07/09/24 07/10/24 16:53 08:06 Sodium 136 L 134 L Potassium 3.4 3.8 Chloride 99 97 L Carbon Dioxide 27 26 BUN 24 H 20 H Creatinine 1.00 0.80 Glucose 285 H 145 H Calcium 9.2 9.8 Liver Function 07/09/24 07/10/24 Range/Units 16:53 08:06 Total Bilirubin 0.7 0.9 (0.2-1.3) mg/dL AST 31 60 H (14-36) U/L ALT 25 32 (6-35) U/L Alkaline Phosphatase 174 H 133 H (38-126) U/L Albumin 4.7 4.7 (3.5-5.1) g/dL Urine 07/09/24 Range/Units 18:56 Urine Color Yellow (Yellow) Urine Appearance Clear (Clear) Urine pH 6.0 (5.0-9.0) Ur Specific [place] 1.014 (1.001-1.035) Urine Protein 3+ H (Negative) mg/dL Urine Glucose (UA) 2+ H (Negative) mg/dL Hospitalist MIPS Advance Care Plan I have confirmed that the patient's Advanced Care Plan is present, code status is documented, or surrogate decision maker is listed in patient medical record.: Yes Medication Reconciliation I have utilized all available resources to obtain, update and review the patients current medications (includes all prescriptions, OTC, herbals, cannabis, and nutritional supplements).: Yes
[2024-07-10] MEDS: PHENYTOIN SODIUM IVPB (16:26)
[2024-07-10] MEDS: SODIUM CHLORIDE 0.9% IVPB (16:26)
[2024-07-10 16:28] LABS: Alveolar/Arterial O2 Gradient 212.7 mmHg; Base Excess ABG 1.9 mEq/l (+/-2.0); Carboxyhemoglobin 0.7 % THb (0-2.0); Fractional Inspired Oxygen 100 %; HCO3 ABG 26.8 mEq/l (22.0-26.0); Methemoglobin ABG 0.2 %THb (0-1.5); Oxygen Content ABG 20.7 %vol (16.0-22.0); Oxygen Saturation ABG 99.9 % (95.0-100.0); Oxyhemoglobin 98.8 % THb (90.0-100.0); PCO2 ABG 43.3 mmHg (35.0-45.0); PO2 FiO2 Ratio Arterial Blood 4.57 %; Reduced Hemoglobin 0.3 %THb (0-5.0)
[2024-07-10 16:29] LABS: Device VENTILATOR; Site Drawn RIGHT BRACHIAL
[2024-07-10 16:31] LABS: Arterial Blood Gas PEEP 5 cmH2O; Arterial Blood Gas Pressure Support 0 cmH2O; Arterial Blood Gas Tidal Volume 350 ml; Arterial Blood Gas Vent Mode CMV; Arterial Blood Gas Ventilator rate 18 /MIN
[2024-07-10] MEDS: NOREPINEPHRINE 8 MG/D5W 250 ML 8 MG/250 ML BAG 9.38 MG IV CONT (16:50)
[2024-07-10 17:33] LABS: Amphetamine Screen Urine Negative (Negative); Barbiturate Screen Urine Negative (Negative); Benzodiazepines Screen Urine Negative (Negative); Cannabinoid Screen Urine Positive (Negative); Cocaine Screen Urine Negative (Negative); Methadone Screen Urine Negative (Negative); Opiate Screen Urine Negative (Negative); Phencyclidine Screen Urine Negative (Negative)
[2024-07-10 17:34] LABS: Triglycerides 71 mg/dL (<150)
--- NOTE | 2024-07-10 17:42 | P.CONNEU_ITS ---
Assessment and Plan Assessment and plan (1) Status epilepticus: Code(s): G40.901 - Epilepsy, unspecified, not intractable, with status epilepticus Status: Acute (2) Metastatic renal cell carcinoma: Code(s): C64.9 - Malignant neoplasm of unspecified kidney, except renal pelvis Status: Acute (3) Malignant neoplasm metastatic to brain: Code(s): C79.31 - Secondary malignant neoplasm of brain Status: Acute Plan Patient was initially managed with the IV Keppra and Ativan but she kept on having seizures and he has had advised her to be transferred immediately to ICU. Dr. Montoya mildly subsequently talk to me the patient required intubation and subsequently started on Dilantin loading dose and also subsequently on propofol. I shall continue to assist in the management. Consult date: 07/10/24 HPI: Philomena Mckee is a 78 year old female history of brain tumor surgery in 2019. The tumor recurred in recently being treated with radiation. This found to be metastasis from a renal cancer. She is admitted to the hospital having had seizures. She was seen in hospital in May with the left upper and lower limb weakness for which she recovered completely since that was postictal paralysis. At this time she is not able to give history since he is having recurrent attacks of seizures. Patient's daughter was sitting next to her and was indeed very helpful. Patient was treated at to [facility] where the neurosurgeon was contacted by the emergency room physician. The admission records from emergency room up to now were reviewed. The tremor or jerking se ems to start from the left side and she becomes confused and during that time she cannot talk and after that she remains confused. She is making certainly herrera that are completely out of character for her according to the daughter such as for example she said that take can have some whiskey so I can keep sleeping. Similarly she also makes several remarks since last night which seemed to be out of character for her. Generally when she is not having any of these spells he remains fairly well current and able to function. A CT scan of brain performed last night did not show any significant acute findings. Mild area of edema was noted in the right parietal area most likely residual finding from the previous tumor. At least based upon this that did not appear to be evidence for any significant recurrence of the tumor. White cell count was high 18.1. This was thought to be most likely either due to Decadron or recurrent seizures. Review of Systems Review of Systems: According to the daughter she has not had any recent febrile illness or trauma ROS unobtainable: Yes unobtainable due to mental status PMFSH Past Medical History Medical History (Updated 07/10/24 @ 17:47 by Carol Wagner MD) Colon cancer GERD (gastroesophageal reflux disease) Heart murmur History of kidney cancer HTN (hypertension) Incisional hernia Malignant neoplasm metastatic to brain Status epilepticus Surgical History Surgical History Cataracts, bilateral removed H/O hernia repair History of ankle surgery with tendon repair 2011 History of colon surgery had colon cancer removed 2017 History of kidney surgery bottom half kidney removed 2010 History of knee surgery 2019 Family History Family History Mother Diabetes mellitus Hypertension Cerebrovascular accident Grandparent Carcinoma of colon Father Cancer Other Family history of allergic disorder Family history of arthritis Family history of malignant neoplasm of breast Family history of malignant neoplasm of kidney Social History Social History (Updated 07/10/24 @ 13:23 by Corine Anderson PA-C) Social History: Lives at home with and son. 1 dog. Smoking packs per day: 0.5 Smoking cigarettes per day: 10.0 Years smoked: 20 Smoking pack-years: 10.00 Smoking status: Former smoker Tobacco type: cigarettes Smoking end date: 09/10/10 Alcohol intake: current Alcohol use details: occasional Substance use: current Substance use type: marijuana Do You Feel Safe in your Home?: Yes Lack of Transportation: No Lack of Food: Never True Current Housing: I Have Housing Concerned About Future Housing: No Difficulty Paying Gas/Electric Bills: No Difficulty Paying for Meds: No Currently Unemployed: No Education: Decline to Answer Difficulty w/ Childcare or Family Care: No Living arrangements: with family Occupation/Education: retired Gender identity (if verbalized by the patient): Female Spiritual care concerns: No Meds Home Medications and Allergies Home Medications Medication Instructions Recorded Confirmed Type mecobalamin (vitamin B12) 1,000 1,000 mcg PO DAILY 01/12/20 07/10/24 History mcg chewable tablet vit C 250 mg-vit E 90 mg-zinc 40 1 tablet PO DAILY 01/12/20 07/10/24 History mg-copper 1 [id number] capsule (PreserVision AREDS-2) amlodipine 5 mg tablet 5 mg PO DAILY 12/09/21 07/10/24 History cyanocobalamin (vitamin B-12) 5,000 mcg PO DAILY 12/09/21 07/10/24 History 5,000 mcg capsule omeprazole 20 mg capsule,delayed 20 mg PO DAILY 12/09/21 07/10/24 History release phenazopyridine 95 mg tablet (Azo 95 mg PO BID Incontinence 01/02/22 07/10/24 History Urinary Pain Relief) dexamethasone 2 mg tablet 2 mg PO BID 07/10/24 07/10/24 History levetiracetam 750 mg tablet 750 mg PO Q12H 07/10/24 07/10/24 History loratadine 10 mg tablet 10 mg PO DAILY 07/10/24 07/10/24 History Allergies Allergy/AdvReac Type Severity Reaction Status Date / Time ciprofloxacin Allergy Unknown unknown Verified 07/10/24 04:49 clindamycin Allergy Unknown unknown Verified 07/10/24 04:49 latex Allergy Unknown sentive Verified 07/10/24 04:49 not really alergic mold Allergy Unknown trouble Verified 07/10/24 04:49 breathing nitrofurantoin Allergy Unknown shuts down Verified 07/10/24 04:49 systems pollen extracts Allergy Unknown respirator Verified 07/10/24 04:49 y Sulfa (Sulfonamide Allergy Unknown unknown Verified 07/10/24 04:49 Antibiotics) clarithromycin AdvReac Mild RASH AND Verified 07/10/24 04:49 BURNING CEFTRIAXONE SODIUM AdvReac Mild RASH Uncoded 07/10/24 04:49 Vital Signs Vital Signs - 24 hr 07/09/24 17:45 07/09/24 17:46 07/09/24 18:00 Temperature Pulse Rate 131 H Respiratory Rate 12 Blood Pressure 190/106 H Pulse Oximetry 98 97 98 Oxygen Delivery Fraction of Inspired Oxygen 07/09/24 18:01 07/09/24 18:15 07/09/24 18:16 Temperature Pulse Rate 123 H 124 H 130 H Respiratory Rate 28 H 20 21 H Blood Pressure 194/105 H 184/96 H Pulse Oximetry 97 98 Oxygen Delivery Fraction of Inspired Oxygen 07/09/24 18:31 07/09/24 18:42 07/09/24 21:22 Temperature Pulse Rate 125 H 110 H Respiratory Rate 10 L 18 Blood Pressure 175/93 H 148/78 H Pulse Oximetry 97 97 Oxygen Delivery Fraction of Inspired Oxygen 07/09/24 22:54 07/09/24 23:45 07/10/24 01:36 Temperature Pulse Rate 112 H 108 H Respiratory Rate 15 15 Blood Pressure 152/74 H 142/72 H Pulse Oximetry 96 97 Oxygen Delivery Room Air Fraction of Inspired Oxygen 07/10/24 04:40 07/10/24 04:00 07/10/24 04:28 Temperature 100 F H Pulse Rate 118 H 112 H Respiratory Rate 20 Blood Pressure 150/91 H Pulse Oximetry 96 Oxygen Delivery Room Air Fraction of Inspired Oxygen 07/10/24 09:44 07/10/24 08:00 07/10/24 08:00 Temperature Pulse Rate 112 H Respiratory Rate Blood Pressure Pulse Oximetry 97 Oxygen Delivery Room Air Room Air Fraction of Inspired Oxygen 07/10/24 12:00 07/10/24 15:10 07/10/24 16:33 Temperature Pulse Rate 110 H 89 Respiratory Rate Blood Pressure Pulse Oximetry 100 Oxygen Delivery Mechanical Ventilation Fraction of Inspired Oxygen 100 50 07/10/24 16:50 07/10/24 17:00 07/10/24 17:05 Temperature Pulse Rate 72 70 69 Respiratory Rate Blood Pressure 77/60 L 82/60 L 80/62 L Pulse Oximetry Oxygen Delivery Fraction of Inspired Oxygen 07/10/24 17:10 07/10/24 17:25 Temperature Pulse Rate 66 74 Respiratory Rate Blood Pressure 82/61 L Pulse Oximetry 100 Oxygen Delivery Mechanical Ventilation Fraction of Inspired Oxygen 40 Exam Narrative: the patient appears awake but she keeps on having frequent seizures involving left upper and lower limb thereafter she appears confused but this happened several times during the course of observation. She is on IV she may given her additional dose of Keppra IV and thereafter Ativan and I discussed with the nurse practitioner on the case Mrs. Raymond plasencia and arrange to transfer her to ICU Results Labs 07/10/24 08:06 07/10/24 08:06 Labs: Short CBC 07/10/24 Range/Units 08:06 WBC 19.7 H (4.5-10.0) K/mm3 Hgb 15.5 H (12.0-15.0) g/dL Hct 45.5 (37.0-47.0) % Plt Count 244 (150-375) k/mm3 BMP 07/10/24 08:06 Sodium 134 L Potassium 3.8 Chloride 97 L Carbon Dioxide 26 BUN 20 H Creatinine 0.80 Glucose 145 H Calcium 9.8 Liver Function 07/10/24 Range/Units 08:06 Total Bilirubin 0.9 (0.2-1.3) mg/dL AST 60 H (14-36) U/L ALT 32 (6-35) U/L Alkaline Phosphatase 133 H (38-126) U/L Albumin 4.7 (3.5-5.1) g/dL Urine 07/09/24 Range/Units 18:56 Urine Color Yellow (Yellow) Urine Appearance Clear (Clear) Urine pH 6.0 (5.0-9.0) Ur Specific [place] 1.014 (1.001-1.035) Urine Protein 3+ H (Negative) mg/dL Urine Glucose (UA) 2+ H (Negative) mg/dL
[2024-07-10] MEDS: MINERAL OIL/WHITE PETROLATUM OINTMENT 1 APPLIC EACH EYE (20:56)
[2024-07-10] MEDS: PHENYTOIN SODIUM INJ 100 MG/2 ML VIAL (*BKC) IV PUSH (21:01)
[2024-07-10 21:12] LABS: Glucose Point of Care 117 mg/dl (65-105)
[2024-07-10 22:56] LABS: MRSA (PCR) NOT DETECTED (NOT DETECTE)
[2024-07-11] VITALS (45 sets, daily range): BP systolic 89–135; BP diastolic 55–95; PULSE 71–100; RESP 13–23; TEMP 37.7–38.3; O2SAT 99–100; BMI 30.4
[2024-07-11] MEDS: PROPOFOL IV EMULSION 100 ML 12.89 MG IV CONT
[2024-07-11] MEDS: PHENYTOIN SODIUM INJ 100 MG/2 ML VIAL (*BKC) IV PUSH ×3 (05:41→21:43)
[2024-07-11] MEDS: levETIRAcetam 1000MG/NACL100ML 1,000 MG/100 ML BAG 400 MG IVPB ×3 (05:42→21:43)
[2024-07-11 05:48] LABS: Basophils Absolute Auto 0.1 K/mm3 (0.0-0.1); Basophils Percent Auto 0.4 % (0.2-1.2); Eosinophils Absolute Auto 0.1 K/mm3 (0-0.3); Eosinophils Percent Auto 0.4 % (0-4.4); Hematocrit 40.6 % (37.0-47.0); Hemoglobin 13.9 g/dL (12.0-15.0); Immature Granulocyte Absolute 0.05 K/mm3 (0.00-0.031); Immature Granulocyte Percent A 0.4 % (0-0.5); Lymphocytes Percent Auto 15.8 % (18.3-44.2); Mean Corpuscular HGB Conc 34.2 g/dl (32-36); Mean Corpuscular Hemoglobin 31.5 pg (26-34); Mean Corpuscular Volume 92.1 fl (80-100); Mean Platelet Volume 9.5 fl (7.4-10.4); Monocytes Absolute Auto 1.1 K/mm3 (0.1-0.6); Monocytes Percent Auto 7.7 % (2.6-8.5); Neutrophils Absolute Auto 10.5 K/mm3 (1.3-6.7); Neutrophils Percent Auto 75.3 % (45.5-73.1); Platelet Count Result 187 k/mm3 (150-375); Red Blood Count 4.41 M/mm3 (4.2-5.4); White Blood Count 13.9 K/mm3 (4.5-10.0)
[2024-07-11 05:59] LABS: Ammonia < 9 umol/L (9-30)
[2024-07-11 06:00] LABS: Alanine Aminotransferase 30 U/L (6-35); Albumin Level 3.6 g/dL (3.5-5.1); Alkaline Phosphatase 97 U/L (38-126); Anion Gap 5 mmol/L (4-12); Aspartate Amino Transferase 63 U/L (14-36); Blood Urea Nitrogen 23 mg/dL (7-17); Calcium 8.9 mg/dL (8.4-10.2); Carbon Dioxide 34 mmol/L (22-30); Chloride 96 mmol/L (98-107); Estimated CRCL calculation 48 ml/min; Estimated Glomerular Filt Rate > 60; Glucose 118 mg/dL (65-110); Magnesium 2.1 mg/dL (1.6-2.3); Phosphorus 3.1 mg/dL (2.5-4.5); Potassium 3.4 mmol/L (3.4-5.0); Sodium 135 mmol/L (137-145)
[2024-07-11] MEDS: PROPOFOL IV EMULSION 100 ML 15.04 MG IV CONT ×2 (06:00→12:20)
[2024-07-11 06:01] LABS: Phenytoin Dilantin 15 ug/mL (10-20)
[2024-07-11] MEDS: POTASSIUM CHLORIDE 20 MEQ PACKET (FOR LIQUID) 40 MEQ FEED TUBE (08:13)
[2024-07-11] MEDS: PANTOPRAZOLE SODIUM IV 40 MG VIAL IV PUSH (08:13)
[2024-07-11] MEDS: MINERAL OIL/WHITE PETROLATUM OINTMENT 1 APPLIC EACH EYE ×2 (08:14→20:06)
[2024-07-11] MEDS: SODIUM CHLORIDE 0.9% IV 1,000 ML 100 ML IV CONT (08:16)
[2024-07-11] MEDS: ENOXAPARIN 40 MG/0.4 ML SYRINGE SUB-Q (08:16)
[2024-07-11 09:52] LABS: Procalcitonin 5.2 ng/mL
--- NOTE | 2024-07-11 10:20 | P.PNINT_ITS ---
Progress Note: A&P Assessment and Plan (1) Status epilepticus: Code(s): G40.901 - Epilepsy, unspecified, not intractable, with status epilepticus Status: Acute Assessment and Plan: Patient presented with altered mental status, paresthesia, seizure activity noted in the ER, patient was admitted to the medical floor which she had multiple episodes at regular intervals -patient was transfer the ICU, intubated on arrival the to sonorous respirations and airway protection. -place patient on propofol infusion for sedation, which also has anti seizure activity -neurology was consulted and patient is now Keppra 1000 mg IV q.8 hours and Dilantin 100 mg IV q.8 hours Patient has a brain tumor details of which unknown to me at this time. Patient was receiving steroids for edema around it radiation therapy in the past. CT scan done on admission reviewed -patient will need MRI and continues EEG monitoring Discussed with patient's and daughter regarding transferring to [facility] where patient receives her care. This risks and benefits of transferring. They understand the risks and benefits and are agreeable to transfer.. Will call [facility] to see if they will accept the patient 07/09/2024 CT brain 1. No acute intracranial process. 2. Small region of encephalomalacia in the right parietal lobe at the site of a resected prior mass reportedly metastatic renal cell carcinoma. (2) Fever: Code(s): R50.9 - Fever, unspecified Status: Acute Assessment and Plan: Patient febrile overnight. Procalcitonin level elevated. WBC elevated UA was negative in addition Check sputum and blood cultures Check CT chest abdomen pelvis Start empiric vancomycin and Zosyn (3) Altered mental status: Code(s): R41.82 - Altered mental status, unspecified Status: Acute Assessment and Plan: Altered mental status likely due to lose seizures and postictal state, currently intubated and sedated (4) Respiratory failure: Code(s): J96.90 - Respiratory failure, unspecified, unspecified whether with hypoxia or hypercapnia Status: Acute Assessment and Plan: 07/10; intubated patient for airway protection, as she had sonorous respirations with altered mental status and status epilepticus -continue CMV mode of ventilation, peep of 5, 35% FiO2 for now -chest X an ABG reviewed -sedated with propofol, maintain RASS of -2 (5) Metastatic renal cell carcinoma: Code(s): C64.9 - Malignant neoplasm of unspecified kidney, except renal pelvis Status: Acute Assessment and Plan: History of kidney cancer with Mets to the brain, brain tumor s/p resection in 2020 and now has another tumor (mets from kidney cancer) for which she is undergoing radiation as it is too close to a vessel, cerebral edema for which she was on steroids is being weaned off -07/09: head CT on admission does not show mass effect or cerebral edema -continue to monitor (6) HTN (hypertension): Code(s): I10 - Essential (primary) hypertension Status: Acute Assessment and Plan: Will hold all antihypertensives for now, as patient is intubated, sedated with propofol, borderline blood pressures Plan DVT prophylaxis: SCDs Stress ulcer prophylaxis: Protonix Nutrition: Start tube feeding Code Status: Full code Critical Care Time Spent: 35 minutes I spoke to [facility] transfer center and patient has been accepted by [facility]. Accepting physician Dr. Gomez for continued management of status epilepticus and intracranial mass. Due to a high probability of clinically significant, life threatening deterioration, the patient required my highest level of preparedness to intervene emergently and I personally spent this critical care time directly and personally managing the patient. This critical care time included obtaining a history; examining the patient; pulse oximetry; ordering and review of studies; arranging urgent treatment with development of a management plan; evaluation of patient's response to treatment; frequent reassessment; and discussions with other providers. It was exclusive of separately billable procedures and treating other patients and teaching time. Please see Assessment and Plan section and the rest of the note for further information on patient assessment and treatment Subjective Date/time seen: 07/11/24 Overnight events reviewed. febrile Continues to be on mechanical ventilation 35% FiO2 Continues to be sedated with propofol Other Vitals acceptable Review of Systems Review of Systems: ROS unobtainable: Yes unobtainable due to endotracheal tube, unobtainable due to medical condition and unobtainable due to mental status Exam Narrative: General: Intubated, sedated in no acute distress HEENT:? Pupils equal and reactive Neck:? Supple Respiratory:? Clear to auscultation bilateral, no wheezing, adequate air entry Cardiac:? S1-S2 was normal, regular rate and rhythm Abdomen:? Soft, nontender, nondistended, hypoactive bowel sound Extremities:? No edema, palpable pedal pulses Neuro:? Intubated, sedated, does not open her eyes or follow simple commands but moves all 4 extremities spontaneously, no seizure activities noted after starting propofol Skin:? Ecchymosis on the upper arms Psych:? Unable to assess at this time Objective Data Vital Signs Vital Signs: Vital Signs - 24 hr 07/10/24 12:00 07/10/24 15:10 07/10/24 16:33 Temperature Pulse Rate 110 H 89 Respiratory Rate Blood Pressure Pulse Oximetry 100 Oxygen Delivery Mechanical Ventilation Fraction of Inspired Oxygen 100 50 07/10/24 16:50 07/10/24 17:00 07/10/24 17:05 Temperature Pulse Rate 72 70 69 Respiratory Rate Blood Pressure 77/60 L 82/60 L 80/62 L Pulse Oximetry Oxygen Delivery Fraction of Inspired Oxygen 07/10/24 17:10 07/10/24 17:25 07/10/24 15:34 Temperature Pulse Rate 66 74 97 Respiratory Rate 18 Blood Pressure 82/61 L Pulse Oximetry 100 Oxygen Delivery Mechanical Ventilation Fraction of Inspired Oxygen 40 07/10/24 16:00 07/10/24 15:40 07/10/24 15:45 Temperature Pulse Rate 80 101 H 88 Respiratory Rate 21 H 20 Blood Pressure Pulse Oximetry Oxygen Delivery Fraction of Inspired Oxygen 07/10/24 15:50 07/10/24 16:45 07/10/24 16:50 Temperature Pulse Rate 86 82 82 Respiratory Rate 21 H 18 18 Blood Pressure Pulse Oximetry Oxygen Delivery Fraction of Inspired Oxygen 07/10/24 17:45 07/10/24 17:50 07/10/24 18:00 Temperature Pulse Rate 78 81 81 Respiratory Rate 18 19 20 Blood Pressure Pulse Oximetry Oxygen Delivery Fraction of Inspired Oxygen 07/10/24 18:00 07/10/24 15:00 07/10/24 16:00 Temperature 38.3 C H 38.3 C H Pulse Rate 81 96 83 Respiratory Rate 17 18 Blood Pressure 117/67 118/76 112/76 Pulse Oximetry 98 100 Oxygen Delivery Fraction of Inspired Oxygen 07/10/24 17:00 07/10/24 18:00 07/10/24 19:00 Temperature 38.3 C H 37.7 C H 38.3 C H Pulse Rate 75 81 83 Respiratory Rate 13 20 17 Blood Pressure 77/60 L 117/67 109/65 Pulse Oximetry 99 100 100 Oxygen Delivery Fraction of Inspired Oxygen 07/10/24 16:00 07/10/24 18:00 07/10/24 20:20 Temperature Pulse Rate 81 83 Respiratory Rate Blood Pressure Pulse Oximetry 100 Oxygen Delivery Mechanical Ventilation Mechanical Ventilation Fraction of Inspired Oxygen 100 40 07/10/24 20:00 07/10/24 21:00 07/10/24 22:00 Temperature Pulse Rate 81 80 80 Respiratory Rate 19 18 19 Blood Pressure Pulse Oximetry Oxygen Delivery Fraction of Inspired Oxygen 07/10/24 20:00 07/10/24 22:00 07/10/24 22:15 Temperature Pulse Rate 81 80 82 Respiratory Rate Blood Pressure 114/66 101/62 114/76 Pulse Oximetry Oxygen Delivery Fraction of Inspired Oxygen 07/10/24 20:00 07/10/24 20:00 07/10/24 22:00 Temperature 38.1 C H 38.0 C H Pulse Rate 81 80 Respiratory Rate 19 19 Blood Pressure 114/66 101/62 Pulse Oximetry 100 100 Oxygen Delivery Mechanical Ventilation Fraction of Inspired Oxygen 40 07/10/24 23:38 07/11/24 00:00 07/11/24 00:00 Temperature Pulse Rate 81 82 82 Respiratory Rate 19 19 Blood Pressure Pulse Oximetry 100 Oxygen Delivery Mechanical Ventilation Fraction of Inspired Oxygen 40 07/11/24 00:00 07/11/24 00:15 07/11/24 00:30 Temperature Pulse Rate 82 83 81 Respiratory Rate Blood Pressure 106/64 112/65 103/65 Pulse Oximetry Oxygen Delivery Fraction of Inspired Oxygen 07/11/24 00:45 07/11/24 01:00 07/10/24 20:00 Temperature Pulse Rate 84 83 83 Respiratory Rate Blood Pressure 116/67 102/63 Pulse Oximetry Oxygen Delivery Fraction of Inspired Oxygen 07/10/24 22:00 07/11/24 00:00 07/11/24 00:00 Temperature 38.1 C H Pulse Rate 80 82 Respiratory Rate 18 Blood Pressure 106/64 Pulse Oximetry 100 Oxygen Delivery Mechanical Ventilation Fraction of Inspired Oxygen 40 07/11/24 00:00 07/10/24 20:00 07/11/24 01:15 Temperature Pulse Rate 84 Respiratory Rate Blood Pressure 99/64 L Pulse Oximetry Oxygen Delivery Fraction of Inspired Oxygen 40 40 07/11/24 00:00 07/11/24 02:20 07/11/24 02:15 Temperature Pulse Rate 82 82 86 Respiratory Rate Blood Pressure 102/65 Pulse Oximetry 100 Oxygen Delivery Mechanical Ventilation Fraction of Inspired Oxygen 40 07/11/24 02:30 07/11/24 02:00 07/11/24 02:00 Temperature 38.1 C H Pulse Rate 83 85 85 Respiratory Rate 18 18 Blood Pressure 90/63 L 92/63 L Pulse Oximetry 100 Oxygen Delivery Fraction of Inspired Oxygen 07/11/24 02:00 07/11/24 04:00 07/11/24 04:00 Temperature Pulse Rate 85 Respiratory Rate Blood Pressure Pulse Oximetry Oxygen Delivery Mechanical Ventilation Fraction of Inspired Oxygen 40 40 07/11/24 04:00 07/11/24 04:00 07/11/24 04:00 Temperature 38.2 C H Pulse Rate 86 86 86 Respiratory Rate 18 18 Blood Pressure 94/64 L 94/64 L Pulse Oximetry 100 Oxygen Delivery Fraction of Inspired Oxygen 07/11/24 04:00 07/11/24 05:06 07/11/24 05:30 Temperature Pulse Rate 81 82 85 Respiratory Rate Blood Pressure 107/65 Pulse Oximetry 100 Oxygen Delivery Mechanical Ventilation Fraction of Inspired Oxygen 40 07/11/24 06:00 07/11/24 06:00 07/11/24 05:45 Temperature Pulse Rate 83 83 81 Respiratory Rate 18 18 Blood Pressure 107/68 Pulse Oximetry Oxygen Delivery Fraction of Inspired Oxygen 07/11/24 06:00 07/11/24 06:00 07/11/24 06:00 Temperature 38.1 C H Pulse Rate 83 83 83 Respiratory Rate 20 Blood Pressure 103/65 103/65 Pulse Oximetry 100 Oxygen Delivery Fraction of Inspired Oxygen 07/11/24 08:02 07/11/24 08:00 07/11/24 08:00 Temperature Pulse Rate 77 78 78 Respiratory Rate 18 Blood Pressure 101/67 Pulse Oximetry 100 Oxygen Delivery Mechanical Ventilation Fraction of Inspired Oxygen 35 07/11/24 08:00 07/11/24 08:00 07/11/24 08:00 Temperature 37.9 C H Pulse Rate 80 77 Respiratory Rate 18 Blood Pressure 115/68 Pulse Oximetry 100 Oxygen Delivery Fraction of Inspired Oxygen 35 07/11/24 10:00 07/11/24 10:00 07/11/24 10:00 Temperature Pulse Rate 74 75 77 Respiratory Rate 18 13 Blood Pressure 109/68 Pulse Oximetry 100 Oxygen Delivery Fraction of Inspired Oxygen 07/11/24 10:00 Temperature Pulse Rate 76 Respiratory Rate Blood Pressure 109/68 Pulse Oximetry Oxygen Delivery Fraction of Inspired Oxygen Intake/Output Intake/Output: Intake & Output 07/08/24 07/09/24 07/10/24 07/11/24 23:59 23:59 23:59 23:59 Intake Total 107.5 2769.276 589.3 Output Total 650 1700 Balance 107.5 2119.276 -1110.7 Meds/Results Medications: Active Medications Generic Name Dose Route Start Last Admin Trade Name Freq PRN Reason Stop Dose Admin Enoxaparin Sodium 40 mg 07/11/24 09:00 07/11/24 08:16 Enoxaparin 40 Mg/0.4 Ml Syringe SUB-Q 40 mg DAILY HELEN Administration Propofol 100 mls @ 15.036 mls/hr 07/10/24 15:05 07/11/24 10:00 Diprivan IV CONT 35 mcg/kg/min .Q6H40M HELEN 15.04 mls/hr Titration Protocol 35 MCG/KG/MIN Norepinephrine Bitartrate 8 mg in 250 mls @ 0 mls/hr 07/10/24 17:00 07/11/24 10:00 Levophed 8 Mg/D5w 250 Ml IV CONT 1 mcg/min .Q0M HELEN 1.88 mls/hr Titration Protocol 0 MCG/MIN Levetiracetam 1,000 mg in 100 mls @ 400 mls/hr 07/10/24 22:00 07/11/24 06:01 Keppra Iv IVPB Infused Q8H HELEN Infusion Sodium Chloride 1,000 mls @ 100 mls/hr 07/11/24 08:00 07/11/24 10:00 Normal Saline Iv IV CONT 07/11/24 17:59 100 mls/hr .Q10H HELEN Infusion Lorazepam 2 mg 07/10/24 16:09 Lorazepam Inj (*Crx) 2 Mg/Ml Vial IV PUSH Q2H PRN Seizures Multi-Ingred Cream/Lotion/Oil/Oint 1 applic 07/10/24 21:00 07/11/24 08:14 Mineral Oil/White Petrolatum Ointment EACH EYE 1 applic Q12HR HELEN Administration Pantoprazole Sodium 40 mg 07/11/24 09:00 07/11/24 08:13 Pantoprazole Sodium Iv 40 Mg Vial IV PUSH 40 mg DAILY HELEN Administration Phenytoin Sodium 100 mg 07/10/24 22:00 07/11/24 05:41 Phenytoin Sodium Inj 100 Mg/2 Ml Vial (*Bkc) IV PUSH 100 mg Q8HR HELEN Administration Radiology Results: ITS Impressions Head CT 07/09/24 16:40 IMPRESSION: 1. No acute intracranial process. 2. Small region of encephalomalacia in the right parietal lobe at the site of a resected prior mass reportedly metastatic renal cell carcinoma. Abdomen X-Ray 07/10/24 15:58 IMPRESSION: 1. Nasogastric tube tip in the stomach. Chest X-Ray 07/11/24 06:39 Impression: Support tubes, as above. Possible minimal haziness right lung base, nonspecific. Labs Labs: Laboratory Results - last 24 hr 07/10/24 07/10/24 07/10/24 16:03 16:04 16:23 WBC RBC Hgb Hct MCV MCH MCHC RDW Plt Count MPV Immature Gran % (Auto) Neut % (Auto) Lymph % (Auto) [place]oke % (Auto) Eos % (Auto) Baso % (Auto) Lymph # (Auto) [place] # (Auto) Eos # (Auto) Baso # (Auto) Abs Immat Gran (auto) Absolute Neuts (auto) Absolute Nucleated RBC Nucleated RBC % Puncture Site Right brachial ABG pH 7.410 ABG pCO2 43.3 ABG pO2 457.0 H ABG PO2/FiO2 Ratio 4.57 ABG HCO3 26.8 H ABG O2 Saturation 99.9 ABG O2 Content 20.7 ABG Base Excess 1.9 A-a Gradient 212.7 Oxyhemoglobin 98.8 Carboxyhemoglobin 0.7 Methemoglobin 0.2 Reduced Hemoglobin 0.3 Total Hemoglobin 14.0 O2 Delivery Device Ventilator O2 Liters/Min 0.0 Minute Volume Not Reportable Vent Rate 18 Vent Mode Cmv FiO2 100 Tidal Volume 350 PEEP 5 Peak Inspir Pressure Not Reportable Pressure Support 0 Sodium Potassium Chloride Carbon Dioxide Anion Gap BUN Creatinine Estim Creat Clear Calc Estimated GFR Glucose POC Capillary Glucose Lactic Acid Calcium Phosphorus Magnesium Total Bilirubin AST ALT Alkaline Phosphatase Ammonia Total Protein Albumin Triglycerides 71 Procalcitonin Nasal MRSA (PCR) Urine Opiates Screen Negative Urine Methadone Screen Negative Ur Barbiturates Screen Negative Phenytoin Ur Phencyclidine Scrn Negative Ur Amphetamine Screen Negative U Benzodiazepines Scrn Negative Urine Cocaine Screen Negative U Cannabinoids Screen Positive A 07/10/24 07/10/24 07/11/24 20:18 21:42 05:38 WBC RBC Hgb Hct MCV MCH MCHC RDW Plt Count MPV Immature Gran % (Auto) Neut % (Auto) Lymph % (Auto) [place] % (Auto) Eos % (Auto) Baso % (Auto) Lymph # (Auto) [place] # (Auto) Eos # (Auto) Baso # (Auto) Abs Immat Gran (auto) Absolute Neuts (auto) Absolute Nucleated RBC Nucleated RBC % Puncture Site ABG pH ABG pCO2 ABG pO2 ABG PO2/FiO2 Ratio ABG HCO3 ABG O2 Saturation ABG O2 Content ABG Base Excess A-a Gradient Oxyhemoglobin Carboxyhemoglobin Methemoglobin Reduced Hemoglobin Total Hemoglobin O2 Delivery Device O2 Liters/Min Minute Volume Vent Rate Vent Mode FiO2 Tidal Volume PEEP Peak Inspir Pressure Pressure Support Sodium Potassium Chloride Carbon Dioxide Anion Gap BUN Creatinine Estim Creat Clear Calc Estimated GFR Glucose POC Capillary Glucose 117 H Lactic Acid Calcium Phosphorus Magnesium Total Bilirubin AST ALT Alkaline Phosphatase Ammonia Total Protein Albumin Triglycerides Procalcitonin Nasal MRSA (PCR) Not detected Urine Opiates Screen Urine Methadone Screen Ur Barbiturates Screen Phenytoin 15 Ur Phencyclidine Scrn Ur Amphetamine Screen U Benzodiazepines Scrn Urine Cocaine Screen U Cannabinoids Screen 07/11/24 07/11/24 05:39 08:51 WBC 13.9 H RBC 4.41 Hgb 13.9 Hct 40.6 MCV 92.1 MCH 31.5 MCHC 34.2 RDW 14.0 Plt Count 187 MPV 9.5 Immature Gran % (Auto) 0.4 Neut % (Auto) 75.3 H Lymph % (Auto) 15.8 L [place]oke % (Auto) 7.7 Eos % (Auto) 0.4 Baso % (Auto) 0.4 Lymph # (Auto) 2.20 [place]oke # (Auto) 1.1 H Eos # (Auto) 0.1 Baso # (Auto) 0.1 Abs Immat Gran (auto) 0.05 H Absolute Neuts (auto) 10.5 H Absolute Nucleated RBC 0.000 Nucleated RBC % 0.0 Puncture Site ABG pH ABG pCO2 ABG pO2 ABG PO2/FiO2 Ratio ABG HCO3 ABG O2 Saturation ABG O2 Content ABG Base Excess A-a Gradient Oxyhemoglobin Carboxyhemoglobin Methemoglobin Reduced Hemoglobin Total Hemoglobin O2 Delivery Device O2 Liters/Min Minute Volume Vent Rate Vent Mode FiO2 Tidal Volume PEEP Peak Inspir Pressure Pressure Support Sodium 135 L Potassium 3.4 Chloride 96 L Carbon Dioxide 34 H Anion Gap 5 BUN 23 H Creatinine 0.80 Estim Creat Clear Calc 48 Estimated GFR > 60 Glucose 118 H POC Capillary Glucose Lactic Acid 1.0 Calcium 8.9 Phosphorus 3.1 Magnesium 2.1 Total Bilirubin 1.0 AST 63 H ALT 30 Alkaline Phosphatase 97 Ammonia < 9 L Total Protein 7.0 Albumin 3.6 Triglycerides Procalcitonin 5.2 Nasal MRSA (PCR) Urine Opiates Screen Urine Methadone Screen Ur Barbiturates Screen Phenytoin Ur Phencyclidine Scrn Ur Amphetamine Screen U Benzodiazepines Scrn Urine Cocaine Screen U Cannabinoids Screen
[2024-07-11] MEDS: PIPERACILLIN/TAZ 4.5G/NS 100ML 4.5 GM/100 ML BAG IVPB ×2 (11:47→17:24)
[2024-07-11] MEDS: VANCOMYCIN 2,000 MG/NS 500 ML 2,000 MG/500 ML BAG 250 MG IVPB (11:47)
--- NOTE | 2024-07-11 12:40 | PCNEURO ---
EEG has been canceled as patient will be transferred to [facility] for continuos EEG. If still here Sunday morning it will be reordered.
[2024-07-11] MEDS: PROPOFOL IV EMULSION 100 ML 17.18 MG IV CONT (18:17)
[2024-07-11] MEDS: NOREPINEPHRINE 8 MG/D5W 250 ML 8 MG/250 ML BAG 3.75 MG IV CONT (18:18)
[2024-07-12] VITALS (24 sets, daily range): BP systolic 82–132; BP diastolic 46–69; PULSE 64–82; RESP 15–23; TEMP 37.1–37.6; O2SAT 99–100
[2024-07-12] MEDS: PIPERACILLIN/TAZ 4.5G/NS 100ML 4.5 GM/100 ML BAG IVPB ×2 (00:36→06:34)
[2024-07-12] MEDS: PROPOFOL IV EMULSION 100 ML 19.33 MG IV CONT ×2 (04:00)
[2024-07-12 04:44] LABS: Basophils Percent Auto 0.5 % (0.2-1.2); Eosinophils Absolute Auto 0.1 K/mm3 (0-0.3); Eosinophils Percent Auto 1.5 % (0-4.4); Hemoglobin 11.4 g/dL (12.0-15.0); Immature Granulocyte Absolute 0.02 K/mm3 (0.00-0.031); Immature Granulocyte Percent A 0.3 % (0-0.5); Lymphocytes Absolute Auto 1.51 K/mm3 (0.9-3.2); Lymphocytes Percent Auto 18.9 % (18.3-44.2); Mean Corpuscular HGB Conc 33.5 g/dl (32-36); Mean Corpuscular Hemoglobin 31.7 pg (26-34); Mean Corpuscular Volume 94.4 fl (80-100); Mean Platelet Volume 9.4 fl (7.4-10.4); Monocytes Absolute Auto 0.5 K/mm3 (0.1-0.6); Monocytes Percent Auto 6.1 % (2.6-8.5); Neutrophils Absolute Auto 5.8 K/mm3 (1.3-6.7); Neutrophils Percent Auto 72.7 % (45.5-73.1); Platelet Count Result 153 k/mm3 (150-375); Red Cell Distribution Width 13.7 % (11.5-14.5)
[2024-07-12 04:46] LABS: Alveolar/Arterial O2 Gradient 46.7 mmHg; Base Excess ABG 5.8 mEq/l (+/-2.0); Carboxyhemoglobin 0.5 % THb (0-2.0); Fractional Inspired Oxygen 25 %; HCO3 ABG 30.4 mEq/l (22.0-26.0); Methemoglobin ABG 0.3 %THb (0-1.5); Oxygen Content ABG 16.2 %vol (16.0-22.0); Oxygen Saturation ABG 96.2 % (95.0-100.0); Oxyhemoglobin 95.1 % THb (90.0-100.0); PO2 ABG 79.3 mmHg (80.0-100.0); PO2 FiO2 Ratio Arterial Blood 3.17 %; Reduced Hemoglobin 4.1 %THb (0-5.0); Total Hemoglobin 12.1 g/dL (12.0-18.0); pH ABG 7.457 (7.350-7.450)
[2024-07-12 04:57] LABS: Alanine Aminotransferase 20 U/L (6-35); Alkaline Phosphatase 79 U/L (38-126); Anion Gap 5 mmol/L (4-12); Aspartate Amino Transferase 30 U/L (14-36); Bilirubin,Total 0.4 mg/dL (0.2-1.3); Blood Urea Nitrogen 21 mg/dL (7-17); Calcium 8.3 mg/dL (8.4-10.2); Carbon Dioxide 31 mmol/L (22-30); Chloride 102 mmol/L (98-107); Estimated CRCL calculation 50 ml/min; Estimated Glomerular Filt Rate > 60; Glucose 118 mg/dL (65-110); Magnesium 2.1 mg/dL (1.6-2.3); Phosphorus 3.1 mg/dL (2.5-4.5); Potassium 3.6 mmol/L (3.4-5.0); Sodium 138 mmol/L (137-145)
--- NOTE | 2024-07-12 05:59 | PC.NURSE ---
updates given to [place] chief transfer and pumphouse operator
[2024-07-12] MEDS: levETIRAcetam 1000MG/NACL100ML 1,000 MG/100 ML BAG 400 MG IVPB (06:33)
[2024-07-12] MEDS: PHENYTOIN SODIUM INJ 100 MG/2 ML VIAL (*BKC) IV PUSH (06:34)
[2024-07-12] MEDS: ENOXAPARIN 40 MG/0.4 ML SYRINGE SUB-Q (08:32)
[2024-07-12] MEDS: POTASSIUM CHLORIDE 20 MEQ PACKET (FOR LIQUID) 40 MEQ FEED TUBE (08:32)
[2024-07-12] MEDS: PANTOPRAZOLE SODIUM IV 40 MG VIAL IV PUSH (08:32)
[2024-07-12] MEDS: MINERAL OIL/WHITE PETROLATUM OINTMENT 1 APPLIC EACH EYE (08:32)
[2024-07-12] MEDS: PROPOFOL IV EMULSION 100 ML 17.18 MG IV CONT (09:17)
--- NOTE | 2024-07-12 09:23 | P.PNINT_ITS ---
Progress Note: A&P Assessment and Plan (1) Status epilepticus: Code(s): G40.901 - Epilepsy, unspecified, not intractable, with status epilepticus Status: Acute Assessment and Plan: Patient presented with altered mental status, paresthesia, seizure activity noted in the ER, patient was admitted to the medical floor which she had multiple episodes at regular intervals -patient was transfer the ICU, intubated on arrival the to sonorous respirations and airway protection. -place patient on propofol infusion for sedation, which also has anti seizure activity -neurology was consulted and patient is now Keppra 1000 mg IV q.8 hours and Dilantin 100 mg IV q.8 hours Patient has a brain tumor details of which unknown to me at this time. Patient was receiving steroids for edema around it radiation therapy in the past. CT scan done on admission reviewed -patient will need MRI and continues EEG monitoring Discussed with patient's and daughter regarding transferring to [facility] where patient receives her care. This risks and benefits of transferring. They understand the risks and benefits and are agreeable to transfer.. Patient has been accepted at [facility] and is waiting for bed assignment. 07/09/2024 CT brain 1. No acute intracranial process. 2. Small region of encephalomalacia in the right parietal lobe at the site of a resected prior mass reportedly metastatic renal cell carcinoma. (2) Altered mental status: Code(s): R41.82 - Altered mental status, unspecified Status: Acute Assessment and Plan: Altered mental status likely due to lose seizures and postictal state, currently intubated and sedated (3) Sepsis: Code(s): A41.9 - Sepsis, unspecified organism Status: Acute Assessment and Plan: Sepsis secondary to aspiration pneumonia Procalcitonin level elevated. WBC elevated UA was negative on admission Pending sputum and blood cultures CT scan as above Continue empiric Zosyn. Vancomycin discontinued Continue Levophed titration to maintain mean arterial pressure (4) Aspiration pneumonia: Code(s): J69.0 - Pneumonitis due to inhalation of food and vomit Status: Acute Assessment and Plan: See above (5) Respiratory failure: Code(s): J96.90 - Respiratory failure, unspecified, unspecified whether with hypoxia or hypercapnia Status: Acute Assessment and Plan: 07/10; intubated patient for airway protection, as she had sonorous respirations with altered mental status and status epilepticus -continue CMV mode of ventilation, peep of 5, 35% FiO2 for now -chest X an ABG reviewed -sedated with propofol, maintain RASS of -2 (6) Metastatic renal cell carcinoma: Code(s): C64.9 - Malignant neoplasm of unspecified kidney, except renal pelvis Status: Acute Assessment and Plan: History of kidney cancer with Mets to the brain, brain tumor s/p resection in 2020 and now has another tumor (mets from kidney cancer) for which she is undergoing radiation as it is too close to a vessel, cerebral edema for which she was on steroids is being weaned off -07/09: head CT on admission does not show mass effect or cerebral edema -continue to monitor (7) HTN (hypertension): Code(s): I10 - Essential (primary) hypertension Status: Acute Assessment and Plan: Will hold all antihypertensives for now, as patient is intubated, sedated with propofol, borderline blood pressures Plan DVT prophylaxis: SCDs Stress ulcer prophylaxis: Protonix Nutrition: Continue tube feeding Code Status: Full code Critical Care Time Spent: 30 minutes 07/11 I spoke to [facility] transfer center and patient has been accepted by [facility]. Accepting physician Dr. Gomez for continued management of status epilepticus and intracranial mass. 07/12 patient awaiting for a bed assignment at [facility] for transfer Due to a high probability of clinically significant, life threatening deterioration, the patient required my highest level of preparedness to intervene emergently and I personally spent this critical care time directly and personally managing the patient. This critical care time included obtaining a history; examining the patient; pulse oximetry; ordering and review of studies; arranging urgent treatment with development of a management plan; evaluation of patient's response to treatment; frequent reassessment; and discussions with other providers. It was exclusive of separately billable procedures and treating other patients and teaching time. Please see Assessment and Plan section and the rest of the note for further information on patient assessment and treatment Subjective Date/time seen: 07/12/24 Overnight events reviewed. Afebrile Continues to be on mechanical ventilation 25% FiO2 Continues to be on Levophed Continues to be sedated with propofol Other Vitals acceptable Tolerating tube feeds Review of Systems Review of Systems: ROS unobtainable: Yes unobtainable due to endotracheal tube, unobtainable due to medical condition and unobtainable due to mental status Exam Narrative: General: Intubated, sedated in no acute distress HEENT:? Pupils equal and reactive Neck:? Supple Respiratory:? Clear to auscultation bilateral, no wheezing, adequate air entry Cardiac:? S1-S2 was normal, regular rate and rhythm Abdomen:? Soft, nontender, nondistended, hypoactive bowel sound Extremities:? No edema, palpable pedal pulses Neuro:? Intubated, sedated, does not open her eyes or follow simple commands but moves all 4 extremities spontaneously, no seizure activities noted after starting propofol Skin:? Ecchymosis on the upper arms Psych:? Unable to assess at this time Objective Data Vital Signs Vital Signs: Vital Signs - 24 hr 07/11/24 10:00 07/11/24 10:00 07/11/24 10:00 Temperature Pulse Rate 74 75 77 Respiratory Rate 18 13 Blood Pressure 109/68 Pulse Oximetry 100 Oxygen Delivery Fraction of Inspired Oxygen 07/11/24 10:00 07/11/24 10:44 07/11/24 11:42 Temperature Pulse Rate 76 77 81 Respiratory Rate 21 H Blood Pressure 109/68 Pulse Oximetry 100 100 Oxygen Delivery Mechanical Ventilation Mechanical Ventilation Fraction of Inspired Oxygen 35 35 07/11/24 12:20 07/11/24 12:20 07/11/24 12:00 Temperature Pulse Rate 78 78 80 Respiratory Rate 16 16 Blood Pressure 90/55 L Pulse Oximetry Oxygen Delivery Fraction of Inspired Oxygen 07/11/24 12:00 07/11/24 12:00 07/11/24 12:00 Temperature 37.8 C H Pulse Rate 81 79 Respiratory Rate 18 Blood Pressure 90/55 L Pulse Oximetry 100 Oxygen Delivery Fraction of Inspired Oxygen 35 07/11/24 12:30 07/11/24 12:45 07/11/24 13:48 Temperature Pulse Rate 77 73 76 Respiratory Rate Blood Pressure 89/60 L 122/60 Pulse Oximetry 100 Oxygen Delivery Mechanical Ventilation Fraction of Inspired Oxygen 30 07/11/24 14:00 07/11/24 14:00 07/11/24 14:00 Temperature 37.9 C H Pulse Rate 72 73 74 Respiratory Rate 18 18 Blood Pressure 110/69 117/60 Pulse Oximetry 100 Oxygen Delivery Fraction of Inspired Oxygen 07/11/24 14:00 07/11/24 15:36 07/11/24 16:00 Temperature Pulse Rate 100 76 75 Respiratory Rate 18 Blood Pressure 111/65 Pulse Oximetry 100 Oxygen Delivery Mechanical Ventilation Fraction of Inspired Oxygen 30 07/11/24 16:00 07/11/24 16:00 07/11/24 16:00 Temperature 37.7 C H Pulse Rate 75 75 Respiratory Rate 18 18 Blood Pressure 111/65 Pulse Oximetry 100 Oxygen Delivery Fraction of Inspired Oxygen 30 07/11/24 16:00 07/11/24 16:54 07/11/24 16:58 Temperature Pulse Rate 74 79 73 Respiratory Rate 23 H Blood Pressure 135/78 Pulse Oximetry Oxygen Delivery Fraction of Inspired Oxygen 07/11/24 17:15 07/11/24 17:25 07/11/24 18:00 Temperature Pulse Rate 76 77 75 Respiratory Rate Blood Pressure 117/73 Pulse Oximetry 100 Oxygen Delivery Mechanical Ventilation Fraction of Inspired Oxygen 30 07/11/24 18:00 07/11/24 18:00 07/11/24 18:00 Temperature 37.8 C H Pulse Rate 75 75 73 Respiratory Rate 18 18 Blood Pressure 101/65 101/65 Pulse Oximetry 100 Oxygen Delivery Fraction of Inspired Oxygen 07/11/24 18:17 07/11/24 18:17 07/11/24 18:18 Temperature Pulse Rate 75 75 72 Respiratory Rate 18 18 Blood Pressure 118/64 Pulse Oximetry Oxygen Delivery Fraction of Inspired Oxygen 07/11/24 18:18 07/11/24 18:24 07/11/24 18:31 Temperature Pulse Rate 72 73 75 Respiratory Rate Blood Pressure 118/64 118/64 107/62 Pulse Oximetry Oxygen Delivery Fraction of Inspired Oxygen 07/11/24 20:00 07/11/24 20:00 07/11/24 20:00 Temperature 37.9 C H Pulse Rate 75 75 75 Respiratory Rate 19 19 Blood Pressure 121/74 121/74 Pulse Oximetry 100 Oxygen Delivery Fraction of Inspired Oxygen 07/11/24 20:15 07/11/24 20:00 07/11/24 20:20 Temperature Pulse Rate 84 78 Respiratory Rate Blood Pressure 109/76 Pulse Oximetry 99 Oxygen Delivery Mechanical Ventilation Fraction of Inspired Oxygen 30 30 07/11/24 20:00 07/11/24 22:00 07/12/24 00:00 Temperature Pulse Rate 71 78 Respiratory Rate 17 21 H Blood Pressure Pulse Oximetry Oxygen Delivery Mechanical Ventilation Fraction of Inspired Oxygen 30 07/12/24 00:00 07/11/24 22:00 07/12/24 00:00 Temperature Pulse Rate 78 71 78 Respiratory Rate 21 H Blood Pressure 100/95 H 121/69 Pulse Oximetry Oxygen Delivery Fraction of Inspired Oxygen 07/11/24 23:01 07/12/24 00:00 07/12/24 00:00 Temperature Pulse Rate 76 Respiratory Rate Blood Pressure Pulse Oximetry 100 Oxygen Delivery Mechanical Ventilation Mechanical Ventilation Fraction of Inspired Oxygen 30 30 30 07/11/24 20:00 07/11/24 22:00 07/12/24 00:00 Temperature Pulse Rate 75 71 82 Respiratory Rate Blood Pressure Pulse Oximetry Oxygen Delivery Fraction of Inspired Oxygen 07/11/24 22:01 07/12/24 00:01 07/12/24 02:01 Temperature 37.8 C H 37.6 C H Pulse Rate 74 78 72 Respiratory Rate 16 21 H Blood Pressure 95/62 L 121/69 Pulse Oximetry 100 100 100 Oxygen Delivery Mechanical Ventilation Fraction of Inspired Oxygen 25 07/12/24 02:00 07/12/24 02:00 07/12/24 02:00 Temperature Pulse Rate 71 71 72 Respiratory Rate 18 Blood Pressure 103/57 L Pulse Oximetry Oxygen Delivery Fraction of Inspired Oxygen 07/12/24 02:00 07/12/24 04:46 07/12/24 04:00 Temperature 37.3 C Pulse Rate 72 71 75 Respiratory Rate 18 23 H Blood Pressure 103/57 L Pulse Oximetry 100 100 Oxygen Delivery Mechanical Ventilation Fraction of Inspired Oxygen 25 07/12/24 04:00 07/12/24 04:00 07/12/24 04:00 Temperature Pulse Rate 75 74 Respiratory Rate 23 H Blood Pressure 115/64 Pulse Oximetry Oxygen Delivery Mechanical Ventilation Fraction of Inspired Oxygen 07/12/24 04:00 07/12/24 04:00 07/12/24 04:17 Temperature 37.6 C H Pulse Rate 78 73 Respiratory Rate 19 Blood Pressure 100/51 L Pulse Oximetry 100 Oxygen Delivery Fraction of Inspired Oxygen 07/12/24 04:48 07/12/24 06:00 07/12/24 05:30 Temperature 37.6 C 37.3 C Pulse Rate 74 73 72 Respiratory Rate 17 18 18 Blood Pressure 118/64 86/48 L Pulse Oximetry 99 100 Oxygen Delivery Fraction of Inspired Oxygen 07/12/24 06:01 07/12/24 06:27 07/12/24 06:31 Temperature 37.3 C 37.1 C 37.1 C Pulse Rate 72 72 71 Respiratory Rate 18 16 19 Blood Pressure 82/48 L 120/61 116/58 L Pulse Oximetry 99 100 100 Oxygen Delivery Fraction of Inspired Oxygen 07/12/24 06:00 07/12/24 07:00 07/12/24 07:00 Temperature Pulse Rate 73 68 69 Respiratory Rate 18 Blood Pressure 85/47 L Pulse Oximetry Oxygen Delivery Fraction of Inspired Oxygen 07/12/24 07:15 07/12/24 07:30 07/12/24 08:00 Temperature Pulse Rate 69 67 67 Respiratory Rate Blood Pressure 83/47 L 90/54 L 132/61 Pulse Oximetry Oxygen Delivery Fraction of Inspired Oxygen 07/12/24 08:00 07/12/24 08:00 07/12/24 08:00 Temperature 37.1 C Pulse Rate 67 67 Respiratory Rate 18 18 Blood Pressure 132/61 Pulse Oximetry 100 Oxygen Delivery Fraction of Inspired Oxygen 25 07/12/24 08:15 07/12/24 09:00 07/12/24 09:17 Temperature Pulse Rate 69 70 71 Respiratory Rate 18 Blood Pressure 123/57 L 106/57 L Pulse Oximetry Oxygen Delivery Fraction of Inspired Oxygen 07/12/24 09:17 07/12/24 08:26 07/12/24 08:00 Temperature Pulse Rate 71 72 71 Respiratory Rate 18 15 Blood Pressure Pulse Oximetry 100 100 Oxygen Delivery Mechanical Ventilation Mechanical Ventilation Fraction of Inspired Oxygen 25 25 Intake/Output Intake/Output: Intake & Output 07/09/24 07/10/24 07/11/24 07/12/24 23:59 23:59 23:59 23:59 Intake Total 107.5 2769.276 2257.6 1102.3 Output Total 650 2000 400 Balance 107.5 2119.276 257.6 702.3 Meds/Results Medications: Active Medications Generic Name Dose Route Start Last Admin Trade Name Freq PRN Reason Stop Dose Admin Enoxaparin Sodium 40 mg 07/11/24 09:00 07/12/24 08:32 Enoxaparin 40 Mg/0.4 Ml Syringe SUB-Q 40 mg DAILY HELEN Administration Propofol 100 mls @ 17.184 mls/hr 07/10/24 15:05 07/12/24 09:17 Diprivan IV CONT 40 mcg/kg/min .Q5H50M HELEN 17.18 mls/hr Administration Protocol 40 MCG/KG/MIN Norepinephrine Bitartrate 8 mg in 250 mls @ 3.75 mls/hr 07/10/24 17:00 07/12/24 09:00 Levophed 8 Mg/D5w 250 Ml IV CONT 2 mcg/min .Q24H HELEN 3.75 mls/hr Titration Protocol 2 MCG/MIN Levetiracetam 1,000 mg in 100 mls @ 400 mls/hr 07/10/24 22:00 07/12/24 06:48 Keppra Iv IVPB Infused Q8H HELEN Infusion Piperacillin Sod/Tazobactam Sod 4.5 gm in 100 mls @ 200 mls/hr 07/11/24 11:00 07/12/24 07:03 Zosyn 4.5 Gm/Ns 100 Ml IVPB Infused Q6HR HELEN Infusion Lorazepam 2 mg 07/10/24 16:09 Lorazepam Inj (*Crx) 2 Mg/Ml Vial IV PUSH Q2H PRN Seizures Multi-Ingred Cream/Lotion/Oil/Oint 1 applic 07/10/24 21:00 07/12/24 08:32 Mineral Oil/White Petrolatum Ointment EACH EYE 1 applic Q12HR HELEN Administration Pantoprazole Sodium 40 mg 07/11/24 09:00 07/12/24 08:32 Pantoprazole Sodium Iv 40 Mg Vial IV PUSH 40 mg DAILY HELEN Administration Phenytoin Sodium 100 mg 07/10/24 22:00 07/12/24 06:34 Phenytoin Sodium Inj 100 Mg/2 Ml Vial (*Bkc) IV PUSH 100 mg Q8HR HELEN Administration Radiology Results: ITS Impressions Head CT 07/09/24 16:40 IMPRESSION: 1. No acute intracranial process. 2. Small region of encephalomalacia in the right parietal lobe at the site of a resected prior mass reportedly metastatic renal cell carcinoma. Abdomen X-Ray 07/10/24 15:58 IMPRESSION: 1. Nasogastric tube tip in the stomach. Chest/Abdomen/Pelvis CT 07/11/24 11:21 IMPRESSION: 1. Mild right-sided pneumonia. 2. Mild emphysema. 3. Small pleural effusions. 4. Gallbladder distention, which may be secondary to fasting or less likely acute cholecystitis. Chest X-Ray 07/12/24 07:42 IMPRESSION: 1. Mild bibasilar opacities consistent with persistent very small pleural effusions and associated atelectasis versus less likely pneumonia Labs Labs: Laboratory Results - last 24 hr 07/11/24 07/12/24 08:51 04:37 WBC 8.0 RBC 3.60 L Hgb 11.4 L Hct 34.0 L MCV 94.4 MCH 31.7 MCHC 33.5 RDW 13.7 Plt Count 153 MPV 9.4 Immature Gran % (Auto) 0.3 Neut % (Auto) 72.7 Lymph % (Auto) 18.9 Door % (Auto) 6.1 Eos % (Auto) 1.5 Baso % (Auto) 0.5 Lymph # (Auto) 1.51 Door # (Auto) 0.5 Eos # (Auto) 0.1 Baso # (Auto) 0.0 Abs Immat Gran (auto) 0.02 Absolute Neuts (auto) 5.8 Absolute Nucleated RBC 0.000 Nucleated RBC % 0.0 Sodium 138 Potassium 3.6 Chloride 102 Carbon Dioxide 31 H Anion Gap 5 BUN 21 H Creatinine 0.80 Estim Creat Clear Calc 50 Estimated GFR > 60 Glucose 118 H Calcium 8.3 L Phosphorus 3.1 Magnesium 2.1 Total Bilirubin 0.4 AST 30 ALT 20 Alkaline Phosphatase 79 Total Protein 6.0 L Albumin 3.0 L Procalcitonin 5.2 Quality VTE Prophylaxis VTE prophylaxis: mechanical ordered
[2024-07-15 13:08] LABS: Arterial Blood Gas Ventilator rate 18 /MIN; Device VENTILATOR; Modified Allen's Test Pass
[2024-07-15 13:09] LABS: Arterial Blood Gas PEEP 5 cmH2O; Arterial Blood Gas Tidal Volume 350 ml; Arterial Blood Gas Vent Mode CMV
--- NOTE | 2024-07-21 11:07 | P.TS_ITS ---
Transfer Discharge Sum: Prov Provider Date of admission: 07/10/24 09:13 Primary care physician: UNKNOWN,DOCTOR Admitting clinician: Opal Bolivar DO Consults: 07/10/24 Consult to Physician Routine Comment: Spoke to 07/10 [id number] (KJ-) Consulting Provider: Carol Wagner cable repairer/MD group to consult: neuro Reason for consultation: AMS Has provider been notified: Yes Receiving physician/facility: Dr. Gomez at [facility] DS: Admitting Diagnosis Discharge Date 07/12/24 Admitting Diagnosis status epilepticus DS: Discharge Diagnosis Discharge Diagnosis (1) Status epilepticus: Code(s): G40.901 - Epilepsy, unspecified, not intractable, with status epilepticus Status: Acute (2) Aspiration pneumonia: Code(s): J69.0 - Pneumonitis due to inhalation of food and vomit Status: Acute (3) Respiratory failure: Code(s): J96.90 - Respiratory failure, unspecified, unspecified whether with hypoxia or hypercapnia Status: Acute (4) Sepsis: Code(s): A41.9 - Sepsis, unspecified organism Status: Acute Transfer Discharge Sum: Med Medications Active and Home Medications: Home Medications mecobalamin (vitamin B12) 1,000 mcg chewable tablet 1,000 mcg PO DAILY 01/12/20 [History Confirmed 07/10/24] vit C 250 mg-vit E 90 mg-zinc 40 mg-copper 1 [id number] capsule (PreserVision AREDS-2) 1 tablet PO DAILY 01/12/20 [History Confirmed 07/10/24] amlodipine 5 mg tablet 5 mg PO DAILY 12/09/21 [History Confirmed 07/10/24] cyanocobalamin (vitamin B-12) 5,000 mcg capsule 5,000 mcg PO DAILY 12/09/21 [History Confirmed 07/10/24] omeprazole 20 mg capsule,delayed release 20 mg PO DAILY 12/09/21 [History Confirmed 07/10/24] phenazopyridine 95 mg tablet (Azo Urinary Pain Relief) 95 mg PO BID Incontinence 01/02/22 [History Confirmed 07/10/24] dexamethasone 2 mg tablet 2 mg PO BID 07/10/24 [History Confirmed 07/10/24] levetiracetam 750 mg tablet 750 mg PO Q12H 07/10/24 [History Confirmed 07/10/24] loratadine 10 mg tablet 10 mg PO DAILY 07/10/24 [History Confirmed 07/10/24] Transfer Discharge Sum: Hosp Hospital Course Hospital course: Philomena Mckee is a 78 year old female with past medical history of colon cancer, GERD, heart murmur, renal cancer with metastatic disease to brain, brain tumor status post resection in 2019, seizure disorder was admitted with status epilepticus and altered mental status. she had seizures prior to presentation and then seizure in the ER. She was given IV Keppra Ativan and transferred to ICU. In ICU patient was obtunded with sonorous respiration and altered mental status and inability to protect airway. She was intubated and placed on propofol, mechanical ventilation. Neurology was consulted and patient was started on Dilantin along with Keppra. Patient also had fever and started on empiric vancomycin and Zosyn. in light of metastatic disease to brain, status epilepticus patient needed continues EEG monitoring and MRI. patient normally receives her care at [facility] and has a neurologist and neurosurgeon there but this was discussed with patient's family regarding transferred to [facility] for further care and management. Risks and benefits were discussed with the patient's family and they verbalized understanding and wanted to proceed with transfer. I spoke to transfer center and provided all the information. Patient was accepted by Dr. Gomez and patient was transferred to [facility] ICU stable his condition for further evaluation management. Time Spent with Patient Time attestation: Total time spent providing and/or coordinating transfer services:
== END 2024-07-12 10:30 | disposition short-term general hospital (02) | DRG 54 ==
LOC: ANHED 22:21 → ANH2MED 07-10 06:45 → ANHICU 07-11 08:55 → ANH2MED 07-15 09:21 → ANHICU 07-15 09:21
PROVIDERS: Internal Medicine; Student in an Organized Health Care Education/Training Program; Admitting Provider Internal Medicine; Emergency Provider Emergency Medicine; Visit Provider Internal Medicine
DX: C79.31 Secondary malignant neoplasm of brain (principal); A41.9 Sepsis, unspecified organism; J69.0 Pneumonitis due to inhalation of food and vomit; J96.90 Respiratory failure, unspecified, unspecified whether with hypoxia or hypercapnia; J18.9 Pneumonia, unspecified organism; G40.901 Epilepsy, unspecified, not intractable, with status epilepticus; K21.9 Gastro-esophageal reflux disease without esophagitis; R01.1 Cardiac murmur, unspecified; Z85.038 Personal history of other malignant neoplasm of large intestine; Z85.528 Personal history of other malignant neoplasm of kidney
CPT/HCPCS: 31500; 36415; 36600; 70450; 71045; 71250; 74176; 80053; 80185; 80307; 81001; 82140; 82375; 82805; 82948; 83050; 83605; 83735; 84100; 84145; 84478; 85018; 85025; 85610; 85730; 87040; 87070; 87205; 87641; 93005; 94002; 94003; 96365; 96375; 99285; A9270; C1751; G0378; J1100; J1165; J1650; J1953; J2060; J2405; J2470; J2543; J2704; J3370; J7030; J7120